=== PATIENT | female | born 1945 | race Caucasian/White ===

== ENCOUNTER 2017-03-22 03:24 | Inpatient (IN) | payer MEDICARE, BC ==
[~2017-03-22] VITALS: Ht 162.6 cm; Wt 50.6 kg
[2017-03-22 03:37] VITALS: BP 156/78; PULSE 86; RESP 18; TEMP 97.4; O2SAT 97
[2017-03-22] MEDS ORDERED: DEXAMETHASONE SOD PHOS 4 MG/ML VIAL IV PUSH ONE (05:15)
[2017-03-22] MEDS ORDERED: HYDROmorphone HCL PF 1 MG/ML VIAL IV PUSH ONE (05:15)
[2017-03-22] MEDS ORDERED: ONDANSETRON HCL 4 MG/2 ML VIAL IV PUSH ONE (05:15)
[2017-03-22 06:00] VITALS: BP 135/67; PULSE 68; RESP 17; O2SAT 98
[2017-03-22 06:33] LABS: BLOOD, URINE NEG (NEG); GLUCOSE,URINE NEG (NEG); KETONE, URINE NEG (NEG); NITRITE,URINE NEG (NEG)
[2017-03-22 06:48] LABS: URINE COLOR YELLOW (YELLW/STRAW)
[2017-03-22 06:49] LABS: MUCUS URINE OCC /lpf (OCC)
[2017-03-22 06:50] LABS: SQUAMOUS EPITHELIAL CELL URINE 0-5 /hpf (0-5)
[2017-03-22 06:51] LABS: BACTERIA, URINE OCC /hpf; WBC, URINE 0-2 /hpf (0-5)
[2017-03-22 06:52] LABS: COMMENT (UR) CULT NOT INDICATED; CULTURE IF INDICATED CULT NOT INDICATED
[2017-03-22 07:28] VITALS: BP 147/68; PULSE 70; RESP 16; O2SAT 98
--- NOTE | 2017-03-22 08:03 | PD ---
HPI Chief Complaint: Pain: Acute or Chronic Time Seen by Provider: 04:42 Travel History International Travel<30 days: No Contact w/Intl Traveler<30days: No Traveled to known affect area: No History of Present Illness HPI 71-year-old female presents to the emergency department by EMS transport from home for complaint of severe low back pain radiating to the right lower extremity. Patient has had low back pain with right lower extremity involvement 10 weeks. Patient has been undergoing PT as an outpatient. Patient had MRI yesterday and was given prescription to start steroid therapy which she has not yet had kidney to do. Patient denies any bladder or bowel dysfunction or saddle anesthesia. Patient has had for 10 weeks numbness to the medial aspect of the right lower extremity as well as severe pain to the lateral aspect of the proximal right lower extremity. Patient has had no injury or fall. Patient rates pain as 10 over 10 in intensity. Patient denies any chest pain shortness of breath pleuritic pain abdominal pain flank pain dysuria frequency urgency or urinary retention or incontinence and no bladder or bowel incontinence. Patient was not able to get out of the [facility] and therefore was transported to the emergency room by EMS. PFSH Past Medical History Narrative Medical Seasonal allergies hysterectomy lumbar disc disease no tobacco use nursing notes reviewed Diminished Hearing: No Genitourinary: Yes (BLADDER LIFT) Medical other: Yes (SEASONAL ALLERGIES) Reproductive: Yes (HYSTERECTOMY) Tetanus Vaccination: < 5 Years Influenza Vaccination: Yes ?: Not Menopausal: Yes : 2 Para: 2 Miscarriage: 0 : 0 Past Surgical History Hysterectomy: Yes Social History Alcohol Use: Yes (SOC) Tobacco Use: No Substance Use: No Allergies-Medications (Allergen,Severity, Reaction): Coded Allergies: Penicillin (Verified Allergy, Severe, Shortness of Breath, 03/22/17) Reported Meds & Prescriptions Reported Meds & Active Scripts Active Review of Systems Except as stated in HPI: all other systems reviewed are Neg General / Constitutional: No: Fever, Chills HENT: No: Congestion Cardiovascular: No: Chest Pain or Discomfort Respiratory: No: Shortness of Breath Gastrointestinal: No: Abdominal Pain Genitourinary: No: Flank Pain Musculoskeletal: Positive: Myalgias, Arthralgias, Pain, No: Limited ROM, Weakness, Cramping, Edema Skin: No Rash Neurologic: Positive: Weakness, Paresthesia (right lower leg), No: Dizziness, Syncope, Focal Abnormalities, Coordination Problem, Incontinence Psychiatric: No: Anxiety Endocrine: No: Heat Intolerance Hematologic/Lymphatic: No: Easy Bruising Physical Exam Narrative GENERAL: Well-developed well-nourished female in no acute distress no respiratory distress SKIN: Warm and dry. HEAD: Normocephalic. EYES: No scleral icterus. No injection or drainage. NECK: Supple, trachea midline. No JVD or lymphadenopathy. CARDIOVASCULAR: Regular rate and rhythm without murmurs, gallops, or rubs. RESPIRATORY: Breath sounds equal bilaterally. No accessory muscle use. GASTROINTESTINAL: Abdomen soft, non-tender, nondistended. MUSCULOSKELETAL: No cyanosis, or edema. BACK: Tender to palpation along the lower lumbar spine and overlying the right SI joint without obvious deformity. No CVA tenderness. Decreased sensation to light touch over the medial right lower leg increased sensitivity to tenderness and pain over the proximal right lower extremity lateral aspect in the lateral cutaneous nerve distribution; DTRs 2+ and equal no clonus bilateral sounds pedis pulses 2+ to palpation. Data Data Last Documented VS Vital Signs Date Time Temp Pulse Resp B/P Pulse Ox O2 Delivery O2 Flow Rate FiO2 03/22/17 07:28 70 16 147/68 98 Room Air 03/22/17 03:37 97.4 Orders ^ Saline Lock (03/22/17 04:42) Dexamethasone Inj (Decadron Inj) (03/22/17 05:15) Ondansetron Inj (Zofran Inj) (03/22/17 05:15) Hydromorphone Pf Inj (Dilaudid Pf Inj) (03/22/17 05:15) Urinalysis - C+S If Indicated (03/22/17 05:20) Admit Order (Ed Use Only) (03/22/17 ) ^ Saline Lock (03/22/17 08:03) Resp Oxygen Carloz C Titrat 1-4 L (03/22/17 ) Notify Dr: Other (03/22/17 08:03) Sodium Chloride 0.9% Flush (Ns Flush) (03/22/17 09:00) Sodium Chloride 0.9% Flush (Ns Flush) (03/22/17 08:15) Labs Laboratory Tests Test 03/22/17 06:05 Urine Color YELLOW Urine Turbidity CLEAR Urine pH 7.0 Urine Specific [place] 1.014 Urine Protein NEG mg/dL Urine Glucose (UA) NEG mg/dL Urine Ketones NEG mg/dL Urine Occult Blood NEG Urine Nitrite NEG Urine Bilirubin NEG Urine Leukocyte Esterase NEG Urine WBC 0-2 /hpf Urine Squamous Epithelial 0-5 /hpf Cells Urine Bacteria OCC /hpf Urine Hyaline Casts 6-9 /lpf Urine Mucus OCC /lpf Microscopic Urinalysis Comment CULT NOT INDICATED MDM Medical Decision Making Medical Screen Exam Complete: Yes Emergency Medical Condition: Yes Medical Record Reviewed: Yes Interpretation(s) Urinalysis: Values in normal range Vital Signs Date Time Temp Pulse Resp B/P Pulse Ox O2 Delivery O2 Flow Rate FiO2 03/22/17 07:28 70 16 147/68 98 Room Air 03/22/17 06:16 17 03/22/17 06:00 68 17 135/67 98 Room Air 03/22/17 03:40 86 18 03/22/17 03:37 97.4 86 18 156/78 97 Differential Diagnosis Lumbar disc disease, radiculopathy, HNP, cauda equina Narrative Course Patient administered IV Decadron 8 mg IV 1 mg Dilaudid IV and Zofran 4 mg IV Patient resting comfortably able to move however unable to weight-bear or lower extremity secondary to severe pain Patient's case discussed with her physician for intractable pain with known lumbar radiculopathy suspect L3-4 L4 5 disc disease with possible impingement MRI as an outpatient pending and not available Physician review of MRI shows that she does have impingement involving the L3 distribution as well as significant disc disease at L4 5 and L5-S1 H will be admitted for observation for pain management and consult with pain management. Physician Communication Physician Communication discussed with Dr Sheehan --obs Diagnosis Primary Impression: Lumbar back pain with radiculopathy affecting right lower extremity Additional Impression: Intractable pain Admitting Information Admitting Physician Requests: Observation Lucia Brenner MD Mar 22, 2017 08:03
[2017-03-22 08:07] VITALS: O2SAT 98
[2017-03-22] MEDS ORDERED: SENNOSIDES 8.6 MG TAB PO PRN (08:15)
[2017-03-22] MEDS ORDERED: LACTULOSE SYRUP 20 GM/30 ML CUP PO PRN (08:15)
[2017-03-22] MEDS ORDERED: NALOXONE HCL 0.4 MG/ML AMP IV PRN (08:15)
[2017-03-22] MEDS ORDERED: BISACODYL 10 MG SUPP RECTAL PRN (08:15)
[2017-03-22] MEDS ORDERED: SODIUM CHLORIDE 0.9% FLUSH 10 ML FLUSH IV FLUSH PRN (08:15)
[2017-03-22] MEDS ORDERED: ONDANSETRON HCL 4 MG/2 ML VIAL IVP PRN (08:15)
[2017-03-22] MEDS ORDERED: SODIUM CHLORIDE 0.9% FLUSH 10 ML FLUSH IVF PRN (08:15)
[2017-03-22] MEDS ORDERED: ACETAMINOPHEN 325 MG TAB PO PRN (08:15)
[2017-03-22] MEDS ORDERED: HYDROmorphone HCL PF 1 MG/ML VIAL IV PUSH PRN (08:15)
[2017-03-22] MEDS ORDERED: MAGNESIUM HYDROXIDE SUSP 30 ML CUP PO PRN (08:15)
[2017-03-22] MEDS ORDERED: ACETAMINOPHEN/HYDROcodone 325 MG/7.5 MG TAB PO PRN (08:15)
--- NOTE | 2017-03-22 08:24 | HHI.PR ---
Addendum to Inpatient Note Addendum Reason: Additional Documentation Additional Information I will be to the hospital to see patient at lunch. I am trying to consult pain management to see her due to intractable pain. will get PT to see her in the interim. I am faxing over MRI of the lumbar spine she did yesterday that showed disc disease with nerve compression. Pt has done PT, chiropractic, meloxicam, steroid IM yesterday and continues to progress with pain over the past few months. now severe. consider neurosurgical consultation if progressive neuro changes but to my understanding she has pain without neuro compromise at this time. Kaykay Sheppard MD Mar 22, 2017 08:24
[2017-03-22 08:47] VITALS: BP 126/63; PULSE 75; RESP 16; O2SAT 96
[2017-03-22] MEDS ORDERED: ADVA250A INH ×2 (08:50→10:03)
[2017-03-22] MEDS ORDERED: SODIUM CHLORIDE 0.9% FLUSH 10 ML FLUSH IV FLUSH SCH ×2 (09:00)
[2017-03-22] MEDS ORDERED: SODIUM CHLOR 0.45% 1000 ML INJ 1,000 ML IV SCH (09:00)
[2017-03-22] MEDS ORDERED: DOCUSATE SODIUM 50 MG/SENNA 8.6 MG TAB PO SCH (09:00)
[2017-03-22 09:55] VITALS: BP 158/79; PULSE 76; RESP 16; TEMP 97.1; O2SAT 100
[2017-03-22] MEDS ORDERED: ESTR0.5T PO (10:02)
[2017-03-22] MEDS ORDERED: FLUT1SPR5 EACH NARE (10:02)
[2017-03-22] MEDS ORDERED: MONT10TA4 PO (10:03)
[2017-03-22] MEDS ORDERED: OXYC1TAB35 PO (12:13)
--- NOTE | 2017-03-22 12:19 | HHI.DS ---
Discharge Summary Admission Date Mar 22, 2017 at 08:05 Discharge Date: Mar 22, 2017 Admitting Diagnosis Lumbar radicuopathy L3-5; intractable pain (1) Lumbar back pain with radiculopathy affecting right lower extremity Diagnosis: Principal Plan: We discussed her course so far, MRI report from yesterday. She has disc protrusion with nerve impingement. I can't get pain management here in [place] and there isn't surgical availability here either. I don't see a need for emergent transfer. She would like to research surgeons before committing. She is now able to move and function. Advised no driving until this is improved. Will discharge home with oral pain meds. She will get the steroid taper she was given yesterday. She will continue wtih PT as tolerated, walk with the walker she has at home. She will call me in the next few days with the surgeon she would like to see and will make the referral. (2) Intractable pain Diagnosis: Principal Plan: see lumbar radiculopathy Consultants none Procedures none Brief History 71 yo WF with severe pain this AM that brought her to the ED. She has been doing PT, chiropractic, massage over a few months but continues to worsen. Hasn' t been able to weight bear to the right leg for the past month. Significant Findings Laboratory Tests Test 03/22/17 06:05 Urine Bacteria OCC /hpf (NONE) Urine Hyaline Casts 6-9 /lpf (RARE) Imaging MRI outpt yesterday PE at Discharge Gen: Thin WF, no distress, moving well in bed Back: no skin lesions, tender over the right sciatic notch, negative SLR bilaterally, full ROM of the hip and knee Neuro: sensation abscence to the medial lower right leg from the knee to the ankle Gait:able to stand independently, walk with walker without full weight bearing to the right leg, worse pain down the lateral right leg with extention at the back, better with flexion. 5/5 strength when in bed. Hospital Course Significant improvement in pain with dilaudid IV to the point that she can now move. Pt Condition on Discharge: Good Discharge Disposition: Discharge Home Discharge Instructions DIET: Follow Instructions for: As Tolerated, No Restrictions Activities you can perform: Weight Bearing as Saeed Activities to Avoid: Driving Other Activity Instructions: no heavy lifting Kaykay Phillips MD Mar 22, 2017 12:19
[2017-03-22] MEDS ORDERED: MONTELUKAST SODIUM 10 MG TAB PO SCH (21:00)
--- NOTE | 2017-03-23 00:28 | MH ---
cc: KONSTANTIN OZUNA MD DATE OF ADMISSION: 03/22/2017 CHIEF COMPLAINT Intractable back pain. HISTORY OF PRESENT ILLNESS Ms. Dupont is a 71-year-old white female who is normally in good health until the past few months. She has had increasing low back pain and decreased ability to function throughout this time. She has been seen in my office by my nurse practitioner and has had general x-rays, physical therapy, chiropractic therapy, massage therapy, and trial of non-narcotic medication for relief of pain without much success. This has continued to worsen especially over the past few weeks. She had an MRI of her spine done yesterday due to the increased pain and decrease in her function. She states overnight she rolled over in bed and had severe pain to her back to the point that she described it as a 14 out of 10 pain. She notes normally bending forward helps to relieve her pain and so she tried to roll to the side of her bed so she could hang her leg off the side but even with that she was unable to function and get relief of pain. Due to the severity of the issue she had her call EVAC to assist him as she did not feel that she would be able to get to the car even for him to take her to the emergency room. EVAC was able to bring her to the emergency room and during evaluation, IV pain medications were given in the ER. She notes she is feeling tremendously better at this point. She is now able to move in bed. Her pain is down to a 2/10 after a 0.5 milligram IV Dilaudid. She denies any major side effects to the medications. She was given an IM steroid injection yesterday in the office and was supposed to have started on oral steroids today, however, had not yet started them. Meloxicam was not effective for pain relief in the recent past. PAST MEDICAL HISTORY: Significant for asthma, menopausal symptomatology, osteoarthritis of the hand. PAST SURGICAL HISTORY: 1. Tonsillectomy 2. Hysterectomy 3. Bladder suspension. 4. Colon polypectomy, benign. 5. Skin cancer removal. 6. Tongue biopsy, November 2015. SOCIAL HISTORY: She is . She is a flight high school professional. Self-employed. She has rare alcohol. She is a never smoker. MEDICATIONS: 1. Advair Diskus 250/50 micrograms, one inhalation daily. 2. Estradiol 1 milligram tablet daily. 3. Aspirin 81 milligrams a day. 4. Fluticasone nasal spray p.r.n. 5. Multivitamin daily. 6. Singulair 10 milligrams daily. 7. Vitamin D. 8. Vitamin D3. ALLERGIES PENICILLIN, causes shortness of breath. FAMILY HISTORY: She has a daughter who is healthy. Dad of old age. He did have diabetes, glaucoma and testicular cancer. She had maternal aunt with cardiovascular disease. Mom age 73 of heart disease, bypass at age 69. She had an DC at age 62. She had COPD but no history of tobacco use. She had a sister with diabetes had a pancreas and kidney transplant. She in 2007 in her sleep. She has another sister with hypertension. She has a son with type 1 diabetes. IMMUNIZATIONS: Pneumovax 23, given in 1999. Pneumovax 23 repeat in 2008. Prevnar given 03/04/2016. Flu vaccine given July 24, 2016. Tetanus in 2007. Colonoscopy not due until 2020. REVIEW OF SYSTEMS: She denies any chest discomfort, or shortness of breath at this time. No recent upper respiratory infection. No fevers, sweats or chills. No other skin lesions noted. She has had no rashes. She has had no abdominal pain. No hematochezia, melena, no dysuria, hematuria, no constipation or other bowel changes. She has had no lower extremity edema, no changes to the skin of the lower extremities. She does note inability to put weight on her right leg fully, numbness to the right lower medial leg from the knee to the ankle. It has become more prominent over the past couple of months. She notes with her altered state her left hip has been bothersome. She feels somewhat crooked in her stance. Today she has had an overall decrease in her level of function due to the weakness and the pain in her leg. OBJECTIVE: VITAL SIGNS: Blood pressure was 135/67, O2 sat 98% on room air, pulse in the 68 range, she has been afebrile throughout her admission. Her initial admit, actually blood pressure was 157/78. GENERAL: In general, she is a well-developed thin white female, appearing younger than stated age. HEENT: Benign. CARDIOVASCULAR: Regular rate and rhythm. LUNGS: Clear bilaterally. ABDOMEN: Soft and non-tender. She is lying in bed appearing comfortable. EXTREMITIES: She was able to rotate in bed and move her legs without difficulty on exam. Laying in bed she had 4/5 strength on the right, 5/5 strength on the left. She had good dorsiflexion and plantar flexion of the foot. She had a subjective numbness between the knee and ankle medially on the right lower leg. The remainder of her sensation was within normal limits. There was no tenderness to palpation throughout the leg and negative straight leg raise on exam. She is able to get to the side of the bed and stand without assistance but she would put her weight predominantly on her left leg. She would only temporarily put weight on her right leg noting increased pain. She had increased pain with extension at the waist. Decreased pain with flexion. She was able to walk with the walker but felt best if she put minimal weight on her right leg. She did have a little hip asymmetry but no lesions to the back. She had slight tenderness over the right sciatic notch. LABORATORY DATA: Urinalysis was negative. IMAGING STUDIES: Her MRI of her lumbar spine done yesterday did show an L3-L4 disc protrusion with some cord compression. ASSESSMENT AND PLAN: 1. Low back pain with radiculopathy affecting the right lower leg. She is feeling significantly better at this time compared to admission. We discussed her MRI reports and her recent findings. Seeing how she has done all the usual outpatient therapies with physical therapy, primary care pediatrician, massage therapy, NSAID therapy and appropriate behavior response, given her disc disease, I think it would be reasonable for her to see neurosurgery to consider surgical repair of the disc. We also discussed options for pain management and steroid injections if needed, however, that would not resolve the issue of the disc dislocation and impingement on the nerve. She is significantly disabled at this time. She is in the [facility] and I am unable to get her pain management or surgical treatment where she is. She felt that she would prefer to be discharged home and try the steroids orally, continue with physical therapy, use of the walker at this time. She would like to research neurosurgical and orthopedic options for surgery and give me a call with her decision in the next day or so. I have advised her not to drive at this time as this is her right leg and she is uncomfortable with putting full pressure on that right leg. She agrees. She will need to use the walker at home for the time being until we can improve her function. Advised to avoid falls and any further injury to the back. She is well aware. She will be sent home today with a script for oxycodone APAP 7.5/325 milligrams. The risks, benefits and side effects discussed. She may start with a half tablet q.i.d. if needed. She will take the Medrol Dosepak that she was given yesterday in the office and see if that helps relieve any of the pain at this time. She will give me a call in the next few days regarding surgical consultation that she is willing to accept. 2. Asthma. She is to continue with her Advair Diskus control and the Singulair. She has been under good control. 3. Menopausal status. She is on Estradiol daily. She did not do well off of the medications in the past due to menopausal symptoms. If she does undergo surgery, I will have her stop that for the time of the surgery and she may restart once her activities resume normal postsurgically. The patient was seen by physical therapy while in the hospital. MD MARRY Gonzalez/ALEXIS /10:56 PM /11:32 PM
== END 2017-03-22 13:43 | disposition home or self-care (01) | DRG 552 ==
LOC: PHED 03:24 → PHEDA 08:05 → OBSVTOIN 08:07 → PH3A 09:25
PROVIDERS: ADMIT Family Medicine; ATTEND Family Medicine
DX: M54.16 Radiculopathy, lumbar region (principal); J45.909 Unspecified asthma, uncomplicated; Z85.828 Personal history of other malignant neoplasm of skin
CPT/HCPCS: 81001; 96374; 96375; J1100; J1170; J2405

== ENCOUNTER 2017-05-12 19:03 | Inpatient (IN) | payer MEDICARE, BC ==
[~2017-05-12] VITALS: Ht 162.6 cm; Wt 48.5 kg
[~2017-05-12 19:03] MED LIST: ADVA250A INH; ESTR0.5T PO; FLUT1SPR5 EACH NARE; MONT10TA4 PO; OXYC1TAB35 PO
[2017-05-12 19:05] VITALS: BP 171/114; PULSE 88; RESP 16; TEMP 98.6; O2SAT 98
[2017-05-12 19:20] VITALS: BP 146/71; RESP 16; O2SAT 99
[2017-05-12] MEDS ORDERED: SODIUM CHLORIDE 0.9% FLUSH 10 ML FLUSH IV FLUSH PRN ×2 (19:30→22:15)
[2017-05-12] MEDS ORDERED: SODIUM CHLORID 0.9% 500 ML INJ 500 ML IV ONE (19:30)
[2017-05-12] MEDS ORDERED: ONDANSETRON HCL 4 MG/2 ML VIAL IVP ONE (19:30)
[2017-05-12] MEDS ORDERED: KETOROLAC TROMETHAMINE 30 MG/ML (IVP) VIAL IVP ONE (19:30)
[2017-05-12 19:41] LABS: AUTOMATED NEUTROPHIL # 6.8 TH/MM3 (1.8-7.7); BASOPHIL # 0.4 TH/MM3 (0-0.2); BASOPHIL % 4.4 % (0.0-2.0); EOSINOPHIL # 0.1 TH/MM3 (0-0.4); EOSINOPHIL % 0.7 % (0.0-4.0); HEMATOCRIT 38.5 % (35.0-46.0); HEMO FLAGS DIFF FINAL; LYMPHOCYTE # 1.5 TH/MM3 (1.0-4.8); MEAN CELL VOLUME 90.6 FL (80.0-100.0); MEAN CORPUSCULAR HEMOGLOBIN 31.1 PG (27.0-34.0); MEAN CORPUSCULAR HGB CONC 34.3 % (32.0-36.0); MONO % 5.7 % (0.0-8.0); NEUT % 73.2 % (16.0-70.0); PLATELET COUNT 220 TH/MM3 (150-450); RED BLOOD COUNT 4.25 MIL/MM3 (4.00-5.30); RED CELL DISTRIBUTION WIDTH 12.3 % (11.6-17.2); WHITE BLOOD COUNT 9.3 TH/MM3 (4.0-11.0)
--- NOTE | 2017-05-12 19:41 | PD ---
HPI Chief Complaint: GI Complaint Time Seen by Provider: 19:17 Travel History International Travel<30 days: No Contact w/Intl Traveler<30days: No Traveled to known affect area: No History of Present Illness HPI Patient is a 71-year-old female presents with 3-4 day history of "torso" pain. Patient states torso but points to her epigastric area. She states she's been having some nausea without vomiting as well as diarrhea and cramping. She denies any shortness of breath. She states that she has been recovering from some back pain and a subacute fracture but her pain in her back is actually gotten much better even though she hasn't gotten her referral to pain management. She denies any fevers states that she's not had pain like this in the past. Her surgeries include a hysterectomy and a bladder suspension. Denies any dysuria PFSH Past Medical History Blood Disorders: No Diminished Hearing: No Endocrine: No Gastrointestinal Disorders: No Genitourinary: No Immune Disorder: No Reproductive: No Respiratory: Yes (ALLERGIES ) ?: Not Menopausal: Yes : 2 Para: 2 Miscarriage: 0 : 0 Past Surgical History Hysterectomy: Yes Other Surgery: Yes Social History Alcohol Use: Yes (SOC) Tobacco Use: No Substance Use: No Allergies-Medications (Allergen,Severity, Reaction): Coded Allergies: Penicillin (Verified Allergy, Severe, Shortness of Breath, 05/12/17) Reported Meds & Prescriptions Reported Meds & Active Scripts Active Oxycodone-Acetaminophen 7.5-325 mg Tab 1 Tab PO Q4H PRN Reported Montelukast (Montelukast Sodium) 10 Mg Tab 10 Mg PO HS Advair Diskus Inh (Fluticasone-Salmeterol Inh) 250-50 Mcg/Blist Aer 1 Puff INH HS Rinse mouth after use. Flonase Nasal Vickery (Fluticasone Nasal Vickery) 50 Mcg/Act Vickery 50 Mcg EACH NARE HS Estradiol 0.5 Mg Tab 0.5 Mg PO Review of Systems Except as stated in HPI: all other systems reviewed are Neg Physical Exam Narrative GENERAL: Well-developed well-nourished, thin build in no obvious distress. SKIN: Focused skin assessment warm/dry. HEAD: Atraumatic. Normocephalic. EYES: Pupils equal and round. No scleral icterus. No injection or drainage. ENT: No nasal bleeding or discharge. Mucous membranes pink and moist. NECK: Trachea midline. No JVD. CARDIOVASCULAR: Regular rate and rhythm. No murmur appreciated. RESPIRATORY: No accessory muscle use. Clear to auscultation. Breath sounds equal bilaterally. GASTROINTESTINAL: Abdomen soft, non-tender, nondistended. Hepatic and splenic margins not palpable. No rebound no percussive tenderness. MUSCULOSKELETAL: No obvious deformities. No clubbing. No cyanosis. No edema. NEUROLOGICAL: Awake and alert. No obvious cranial nerve deficits. Motor grossly within normal limits. Normal speech. PSYCHIATRIC: Appropriate mood and affect; insight and judgment normal. Data Data Last Documented VS Vital Signs Date Time Temp Pulse Resp B/P Pulse Ox O2 Delivery O2 Flow Rate FiO2 05/12/17 20:59 82 16 151/67 99 Room Air 05/12/17 19:05 98.6 Orders Complete Blood Count With Diff (05/12/17 19:26) Comprehensive Metabolic Panel (05/12/17 19:26) Lipase (05/12/17 19:26) Prothrombin Time / Inr (Pt) (05/12/17 19:26) Act Partial Throm Time (Ptt) (05/12/17 19:26) Urinalysis - C+S If Indicated (05/12/17 19:26) Iv Access Insert/Monitor (05/12/17 19:26) Ecg Monitoring (05/12/17 19:26) Oximetry (05/12/17 19:26) Ondansetron Inj (Zofran Inj) (05/12/17 19:30) Sodium Chloride 0.9% Flush (Ns Flush) (05/12/17 19:30) Electrocardiogram (05/12/17 19:26) Ketorolac Inj (Toradol Inj) (05/12/17 19:30) Sodium Chlorid 0.9% 500 Ml Inj (Ns 500 M (05/12/17 19:30) Troponin I (05/12/17 19:26) Ct Abd/Pel W Iv Contrast(Rout) (05/12/17 ) Iohexol 350 Inj (Omnipaque 350 Inj) (05/12/17 20:40) Consult Gastroenterology (05/12/17 ) Consult General Surgery (05/12/17 ) Admit Order (Ed Use Only) (05/12/17 ) Mri Mrcp W/O Contrast (05/12/17 ) Labs Laboratory Tests Test 05/12/17 05/12/17 18:30 20:55 White Blood Count 9.3 TH/MM3 Red Blood Count 4.25 MIL/MM3 Hemoglobin 13.2 GM/DL Hematocrit 38.5 % Mean Corpuscular Volume 90.6 FL Mean Corpuscular Hemoglobin 31.1 PG Mean Corpuscular Hemoglobin 34.3 % Concent Red Cell Distribution Width 12.3 % Platelet Count 220 TH/MM3 Mean Platelet Volume 8.8 FL Neutrophils (%) (Auto) 73.2 % Lymphocytes (%) (Auto) 16.0 % Monocytes (%) (Auto) 5.7 % Eosinophils (%) (Auto) 0.7 % Basophils (%) (Auto) 4.4 % Neutrophils # (Auto) 6.8 TH/MM3 Lymphocytes # (Auto) 1.5 TH/MM3 Monocytes # (Auto) 0.5 TH/MM3 Eosinophils # (Auto) 0.1 TH/MM3 Basophils # (Auto) 0.4 TH/MM3 CBC Comment DIFF FINAL Differential Comment Prothrombin Time 10.6 SEC Prothromb Time International 1.0 RATIO Ratio Activated Partial 24.5 SEC Thromboplast Time Sodium Level 136 MEQ/L Potassium Level 3.6 MEQ/L Chloride Level 100 MEQ/L Carbon Dioxide Level 28.6 MEQ/L Anion Gap 7 MEQ/L Blood Urea Nitrogen 12 MG/DL Creatinine 0.69 MG/DL Estimat Glomerular Filtration 83 ML/MIN Rate Random Glucose 113 MG/DL Calcium Level 10.2 MG/DL Total Bilirubin 2.0 MG/DL Aspartate Amino Transf 365 U/L (AST/SGOT) Alanine Aminotransferase 209 U/L (ALT/SGPT) Alkaline Phosphatase 319 U/L Troponin I LESS THAN 0.02 NG/ML Total Protein 7.8 GM/DL Albumin 3.6 GM/DL Lipase 70804 U/L Urine Color YELLOW Urine Turbidity CLEAR Urine pH 6.0 Urine Specific [place] 1.025 Urine Protein NEG mg/dL Urine Glucose (UA) NEG mg/dL Urine Ketones 15 mg/dL Urine Occult Blood NEG Urine Nitrite NEG Urine Bilirubin NEG Urine Leukocyte Esterase TRACE Urine RBC 0-3 /hpf Urine WBC 3-5 /hpf Urine Squamous Epithelial 0-5 /hpf Cells Urine Amorphous Sediment MOD Urine Bacteria OCC /hpf Microscopic Urinalysis Comment CULT NOT INDICATED MDM Medical Decision Making Medical Screen Exam Complete: Yes Emergency Medical Condition: Yes Differential Diagnosis Pancreatitis, cholecystitis, colitis, gastritis, Narrative Course Patient roomed in the emergency department, her lab workup was significant for elevated lipase in the 10,000 range, AST and ALT were elevated as well as alkaline phosphatase and bilirubin minimally elevated to 2.0. With these lab values I have recommended the patient had a CAT scan of her abdomen which showed pericholecystic fluid and dilation of the entire biliary system consistent with a gallstone pancreatitis Last 24 hours Impressions Abdomen/Pelvis CT 05/12/17 0000 Signed Impressions: Service Date/Time: May 20:26 - CONCLUSION: 1. Abnormal appearance to the biliary system with dilation of both the intra-and extrahepatic biliary system, a distended gallbladder, and free fluid in Warner's pouch. No calcified stones in the gallbladder or biliary ducts. The findings suggest obstruction at the level of the ampulla. 2. Symmetric appearing soft tissue masses in the pelvis which appear to connect with the vagina (history of hysterectomy). This finding is of uncertain significance. Recommend correlation with pelvic examination. Sami Bermudez MD The findings were discussed with Dr. Dean and Dr. Gustavo Douglas, current recommendations are for MRCP now transferred [facility] for likely ERCP in the morning, nothing by mouth and IV hydration. The patient was given Toradol Zofran in the emergency department is feeling better. All things considered the patient does look fairly comfortable. Patient discussed with Dr. Oropeza for admission and she is agreeable. Diagnosis Primary Impression: Gallstone pancreatitis Admitting Information Admitting Physician Requests: Admit (To [facility]. Stable for transportation.) Condition: Stable Levon Santiago MD May 12, 2017 19:41
[2017-05-12 19:52] LABS: CHLORIDE 100 MEQ/L (98-107); POTASSIUM 3.6 MEQ/L (3.5-5.1); SODIUM (NA) 136 MEQ/L (136-145)
[2017-05-12 19:56] LABS: ANION GAP 7 MEQ/L (5-15); BICARBONATE 28.6 MEQ/L (21.0-32.0); BLOOD UREA NITROGEN 12 MG/DL (7-18)
[2017-05-12 19:57] LABS: APTT (PATIENT) 24.5 SEC (24.3-30.1); PROTHROMBIN TIME - PATIENT 10.6 SEC (9.8-11.6)
[2017-05-12 19:58] LABS: ALT (GPT) 209 U/L (10-53)
[2017-05-12 19:59] LABS: AST (GOT) 365 U/L (15-37); GLOMERULAR FILTRATION RATE 83 ML/MIN (>89)
[2017-05-12 20:01] LABS: ALKALINE PHOSPHATASE 319 U/L (45-117)
[2017-05-12] MEDS ORDERED: IOHEXOL 350 MG/ML 10 ML VIAL (for RAD DIAG) IV ONE (20:40)
[2017-05-12 20:59] VITALS: BP 151/67; PULSE 82; RESP 16; O2SAT 99
[2017-05-12 21:04] LABS: BLOOD, URINE NEG (NEG); GLUCOSE,URINE NEG (NEG); KETONE, URINE 15 mg/dL (NEG); NITRITE,URINE NEG (NEG)
[2017-05-12 21:11] LABS: RBC, URINE 0-3 /hpf (0-3); SQUAMOUS EPITHELIAL CELL URINE 0-5 /hpf (0-5); URINE COLOR YELLOW (YELLW/STRAW)
[2017-05-12 21:12] LABS: BACTERIA, URINE OCC /hpf; COMMENT (UR) CULT NOT INDICATED; CULTURE IF INDICATED CULT NOT INDICATED
--- NOTE | 2017-05-12 21:29 | RADRPT ---
EXAM DATE/TIME: 05/12/2017 20:26 [facility] COMPARISON: No previous studies available for comparison. INDICATIONS : Abdominal pain, nausea, diarrhea. IV CONTRAST: 94 cc Omnipaque 350 (iohexol) IV ORAL CONTRAST: No oral contrast ingested. RADIATION DOSE: 3.68 CTDIvol (mGy) MEDICAL HISTORY : None SURGICAL HISTORY : Hysterectomy. ENCOUNTER: Initial ACUITY: 3 days PAIN SCALE: 9/10 LOCATION: Right upper quadrant TECHNIQUE: Volumetric scanning of the abdomen and pelvis was performed. Using automated exposure control and ad justment of the mA and/or kV according to patient size, radiation dose was kept as low as reasonably achievable to obtain optimal diagnostic quality images. DICOM format image data is available electro nically for review and comparison. FINDINGS: LOWER LUNGS: The visualized lower lungs are clear. LIVER: Abnormal. There is dilation of the intra-and extrahepatic biliary system with the common bile duct m easuring up to 1.8 cm at the jacob and 1.1 cm in the head of the pancreas. The entire common bile du ct is dilated down to the level of the ampulla. The gallbladder is distended. No calcified stones s een in the gallbladder or biliary system. No solid lesions seen in the hepatic parenchyma. There is a moderate amount of free fluid in Morison spelled which does not track into the paracolic gutter. SPLEEN: Normal size without lesion. PANCREAS: Normal configuration. No dilation of the pancreatic duct. KIDNEYS: Normal in size and shape. There is no mass, stone or hydronephrosis. ADRENAL GLANDS: Within normal limits. VASCULAR: There is no aortic aneurysm. BOWEL/MESENTERY: No dilated loops of small or large bowel. ABDOMINAL WALL: Within normal limits. RETROPERITONEUM: There is no lymphadenopathy. BLADDER: No wall thickening or mass. REPRODUCTIVE: Hysterectomy. There are bilateral pelvic masses which measure 3.0 cm on the right and 2.5 cm and the left, containing a few punctate calcifications with in. These appear to coalesce in the midline in the region of the vaginal fornix. INGUINAL: There is no lymphadenopathy or hernia. MUSCULOSKELETAL: Within normal limits for patient age. CONCLUSION: 1. Abnormal appearance to the biliary system with dilation of both the intra-and extrahepatic biliary system, a distended gallbladder, and free fluid in Warner's pouch. No calcified stones in the gal lbladder or biliary ducts. The findings suggest obstruction at the level of the ampulla. 2. Symmetric appearing soft tissue masses in the pelvis which appear to connect with the vagina (hist ory of hysterectomy). This finding is of uncertain significance. Recommend correlation with pelvic examination. Sami Bermudez MD on May 12, 2017 at 21:19 Board Certified Radiologist. This report was verified electronically.
[2017-05-12] MEDS ORDERED: ACETAMINOPHEN/HYDROcodone 325 MG/5 MG TAB PO PRN (22:15)
[2017-05-12] MEDS ORDERED: LACTULOSE SYRUP 20 GM/30 ML CUP PO PRN (22:15)
[2017-05-12] MEDS ORDERED: ONDANSETRON HCL 4 MG/2 ML VIAL IVP PRN (22:15)
[2017-05-12] MEDS ORDERED: ACETAMINOPHEN 325 MG TAB PO PRN (22:15)
[2017-05-12] MEDS ORDERED: HYDROmorphone HCL PF 1 MG/ML VIAL IV PRN (22:15)
[2017-05-12] MEDS ORDERED: MAGNESIUM HYDROXIDE SUSP 30 ML CUP PO PRN (22:15)
[2017-05-12] MEDS ORDERED: SENNOSIDES 8.6 MG TAB PO PRN (22:15)
[2017-05-12] MEDS ORDERED: BISACODYL 10 MG SUPP RECTAL PRN (22:15)
[2017-05-12 23:26] VITALS: BP 140/77; PULSE 85; RESP 16; O2SAT 99
--- NOTE | 2017-05-12 23:44 | RADRPT ---
EXAM DATE/TIME: 05/12/2017 23:09 [facility] COMPARISON: CT ABDOMEN & PELVIS W CONTRAST, May 12, 2017, 20:26. INDICATIONS : Pain. MEDICAL HISTORY : None. SURGICAL HISTORY : Hysterectomy. Bladder surgery. Sinus surgery. ENCOUNTER: Initial ACUITY: 1 day PAIN SCORE: 2/10 LOCATION: Right upper quadrant TECHNIQUE: Multiplanar, multisequence magnetic resonance imaging of the abdomen was performed. High-resolution 3D dataset was utilized to reconstruct maximum-intensity projection (MIP) images. FINDINGS: The liver and spleen are normal in size and no focal defects are identified. The gallbladder is diste nded with pericholecystic fluid with dilatation of the common duct to 11 mm but no stone is identifie d. There is mild dilatation of intrahepatic ducts as well. The pancreas demonstrates no evidence of m ass and there is no dilatation of the pancreatic duct. The adrenal glands and kidneys appear normal b ilaterally. No hydronephrosis or mass lesions are identified. No abnormally enlarged lymph nodes are identified. CONCLUSION: 1. Gallbladder distention and ductal dilatation without evidence of stone. 2. Pericholecystic fluid is present characteristic of cholecystitis Han Troncoso MD on May 12, 2017 at 23:38 Board Certified Radiologist. This report was verified electronically.
[2017-05-13] MEDS: SODIUM CHLOR 0.9% 1000 ML INJ 1,000 ML IV SCH ×4 (00:22→20:28)
[2017-05-13] MEDS: PANTOPRAZOLE SODIUM 40 MG VIAL IV PUSH SCH ×2 (00:22→11:00)
[2017-05-13 03:17] VITALS: BP 136/63; PULSE 71; RESP 17; TEMP 97.7; O2SAT 97
[2017-05-13 07:46] VITALS: BP 105/53; PULSE 71; RESP 18; TEMP 97.2; O2SAT 96
[2017-05-13] MEDS: DOCUSATE SODIUM 50 MG/SENNA 8.6 MG TAB PO SCH ×2 (11:00→20:28)
[2017-05-13] MEDS: SODIUM CHLORIDE 0.9% FLUSH 10 ML FLUSH IV FLUSH SCH ×2 (11:04→20:28)
--- NOTE | 2017-05-13 11:13 | EKG ---
Date Performed: 05/12/2017 Time Performed: 19:37:00 PTAGE: 71 years EKG: Sinus rhythm NORMAL ECG Since PREVIOUS TRACING , no significant change noted PREVIOUS TRACIN08/21/2002 08.09 DOCTOR: Han Perea Interpretating Date/Time 05/13/2017 11:12:19
[2017-05-13 11:57] VITALS: BP 127/62; PULSE 79; RESP 18; TEMP 97.8; O2SAT 96
--- NOTE | 2017-05-13 13:00 | PD.CONS ---
HPI Service General Surgery Consult Requested By Dr. Santiago Reason for Consult gallstone pancreatitis Primary Care Physician Kaykay Phillips MD History of Present Illness 71 yo F developed presents with abdominal pain. She developed epigastric pain radiating down to the pubis and to the back for a few days. This is associated with nausea but no vomiting. Labs revealed elevated LFTs and elevated lipase. CT a/p showed dilation of biliary tree and gallbladder. MRCP was performed showing same, and also pericholecystic fluid, but no stones in gallbladder or common duct. PSH includes hysterectomy. Review of Systems Constitutional: DENIES: Fever, Chills Eyes: DENIES: Eye inflammation, Eye pain Ears, nose, mouth, throat: DENIES: Nasal discharge, Throat pain Respiratory: DENIES: Cough, Shortness of breath Cardiovascular: DENIES: Chest pain, Palpitations Gastrointestinal: COMPLAINS OF: Abdominal pain, Nausea Musculoskeletal: COMPLAINS OF: Back pain Integumentary: DENIES: Pruritus, Rash Neurologic: DENIES: Paresthesias, Seizures Past Family Social History Past Medical History Asthma Past Surgical History Hysterectomy Bladder lift Reported Medications Reported Meds & Active Scripts Active Oxycodone-Acetaminophen 7.5-325 mg Tab 1 Tab PO Q4H PRN Reported Montelukast (Montelukast Sodium) 10 Mg Tab 10 Mg PO HS Advair Diskus Inh (Fluticasone-Salmeterol Inh) 250-50 Mcg/Blist Aer 1 Puff INH HS Rinse mouth after use. Flonase Nasal Allgood (Fluticasone Nasal Allgood) 50 Mcg/Act Allgood 50 Mcg EACH NARE HS Estradiol 0.5 Mg Tab 0.5 Mg PO Allergies: Coded Allergies: Penicillin (Verified Allergy, Severe, Shortness of Breath, 05/12/17) Active Ordered Medications Current Medications Medications (Trade) Dose Ordered Sig/Genaro Route Start Time Stop Time Status Last Admin Pantoprazole Sodium 40 mg 40 mg Q12H IV PUSH 05/12/17 23:00 05/13/17 11:00 (NS 1000 ml Inj) 1,000 ml @ 100 mls/hr Q10H IV 05/12/17 22:07 05/13/17 11:02 (NS Flush) 2 ml UNSCH PRN IV FLUSH 05/12/17 22:15 (NS Flush) 2 ml BID IV FLUSH 05/13/17 09:00 05/13/17 11:04 (Zofran Inj) 4 mg Q6H PRN IVP 05/12/17 22:15 (Tylenol) 650 mg Q6H PRN PO 05/12/17 22:15 (Garrett 5-325 Mg) 1 tab Q4H PRN PO 05/12/17 22:15 (Dilaudid Pf Inj) 0.5 mg Q3H PRN IV 05/12/17 22:15 (Bridgette-Colace) 1 tab BID PO 05/13/17 09:00 05/13/17 11:00 (Milk Of Magnesia Liq) 30 ml Q12H PRN PO 05/12/17 22:15 (Senokot) 17.2 mg Q12H PRN PO 05/12/17 22:15 (Dulcolax Supp) 10 mg DAILY PRN RECTAL 05/12/17 22:15 (Lactulose Liq) 30 ml DAILY PRN PO 05/12/17 22:15 Family History Noncontributory Social History Rare ETOH. No tobacco use. Physical Exam Vital Signs Vital Signs Date Time Temp Pulse Resp B/P Pulse Ox O2 Delivery O2 Flow Rate FiO2 05/13/17 11:57 97.8 79 18 127/62 96 05/13/17 07:46 97.2 71 18 105/53 96 05/13/17 03:17 97.7 71 17 136/63 97 05/12/17 23:26 85 16 140/77 99 Room Air 05/12/17 20:59 82 16 151/67 99 Room Air 05/12/17 19:20 16 146/71 99 Room Air 05/12/17 19:05 98.6 88 16 171/114 98 Physical Exam GENERAL: Awake and alert. No acute distress. Cooperative. HEAD: Normocephalic. Atraumatic. EYES: Pupils equal round and reactive to light bilaterally. No scleral icterus. CHEST: Lungs clear to auscultation bilaterally with no wheezing or rhonchi. No respiratory distress. CARDIOVASCULAR: Regular rate and rhythm. ABDOMEN: Mild mid abdominal tenderness. Nondistended. Soft. Positive Dumont sign. EXTREMITIES: No cyanosis or edema. SKIN: Warm, dry, nonjaundiced. Laboratory Laboratory Tests Test 05/12/17 05/12/17 18:30 20:55 White Blood Count 9.3 Red Blood Count 4.25 Hemoglobin 13.2 Hematocrit 38.5 Mean Corpuscular Volume 90.6 Mean Corpuscular Hemoglobin 31.1 Mean Corpuscular Hemoglobin 34.3 Concent Red Cell Distribution Width 12.3 Platelet Count 220 Mean Platelet Volume 8.8 Neutrophils (%) (Auto) 73.2 Lymphocytes (%) (Auto) 16.0 Monocytes (%) (Auto) 5.7 Eosinophils (%) (Auto) 0.7 Basophils (%) (Auto) 4.4 Neutrophils # (Auto) 6.8 Lymphocytes # (Auto) 1.5 Monocytes # (Auto) 0.5 Eosinophils # (Auto) 0.1 Basophils # (Auto) 0.4 CBC Comment DIFF FINAL Differential Comment Prothrombin Time 10.6 Prothromb Time International 1.0 Ratio Activated Partial 24.5 Thromboplast Time Sodium Level 136 Potassium Level 3.6 Chloride Level 100 Carbon Dioxide Level 28.6 Anion Gap 7 Blood Urea Nitrogen 12 Creatinine 0.69 Estimat Glomerular Filtration 83 Rate Random Glucose 113 Calcium Level 10.2 Total Bilirubin 2.0 Aspartate Amino Transf 365 (AST/SGOT) Alanine Aminotransferase 209 (ALT/SGPT) Alkaline Phosphatase 319 Troponin I LESS THAN 0.02 Total Protein 7.8 Albumin 3.6 Lipase 68119 Urine Color YELLOW Urine Turbidity CLEAR Urine pH 6.0 Urine Specific Gab[place] 1.025 Urine Protein NEG Urine Glucose (UA) NEG Urine Ketones 15 Urine Occult Blood NEG Urine Nitrite NEG Urine Bilirubin NEG Urine Leukocyte Esterase TRACE Urine RBC 0-3 Urine WBC 3-5 Urine Squamous Epithelial 0-5 Cells Urine Amorphous Sediment MOD Urine Bacteria OCC Microscopic Urinalysis Comment CULT NOT INDICATED Result Diagram: 05/12/17 1830 05/12/17 1830 Imaging Last Impressions Cholangiopancreatography MRI 05/12/17 0000 Signed Impressions: Service Date/Time: May 23:09 - CONCLUSION: 1. Gallbladder distention and ductal dilatation without evidence of stone. 2. Pericholecystic fluid is present characteristic of cholecystitis Han Troncoso MD Abdomen/Pelvis CT 05/12/17 0000 Signed Impressions: Service Date/Time: May 20:26 - CONCLUSION: 1. Abnormal appearance to the biliary system with dilation of both the intra-and extrahepatic biliary system, a distended gallbladder, and free fluid in Warner's pouch. No calcified stones in the gallbladder or biliary ducts. The findings suggest obstruction at the level of the ampulla. 2. Symmetric appearing soft tissue masses in the pelvis which appear to connect with the vagina (history of hysterectomy). This finding is of uncertain significance. Recommend correlation with pelvic examination. Sami Bermudez MD Assessment and Plan Assessment and Plan 71-year-old female with elevated LFTs and pancreatitis. No gallstones were identified on MRCP. However, I think it is likely that she has gallstone pancreatitis from a passed stone or sludge. She needs follow-up labs. I would offer cholecystectomy based on history of gallstone pancreatitis when she is clinically improved. I'll be happy to have her follow-up with me next week and I discussed this in detail with her. She may end up declining cholecystectomy as her had similar episodes and did not have a cholecystectomy and did well. From my standpoint, okay to advance diet as she continues to clinically improve and discharge home when appropriate. MisaelEmeka MD May 13, 2017 13:00
--- NOTE | 2017-05-13 13:07 | HHI.HP ---
cc: Kaykay Phillips MD HPI Service [facility] Primary Care Physician Kaykay Phillips MD Admission Diagnosis Gallstone Pancreatitis Diagnoses: Chief Complaint: Abdominal pain Travel History International Travel<30 Days: No Contact w/Intl Traveler <30 Da: No Traveled to Known Affected Are: No History of Present Illness Written by Lulu Casey, acting as scribe for Dr. Willson on 05/13/17 at 12:59. This is a 68-year-old female patient with past medical history which includes arthritis, seasonal allergies and recent herniated disc. Patient presented to the hospital with complaints of 3-4 days of abdominal pain. Patient reports the pain is located between the rib cage to her pelvis with radiation to the back. Patient describes the pain as a 9 out of 10 at its worse and is currently ," -1," out of 10. The pain was associated nausea but no vomiting. Patient with nausea was so bad that she has been unable to eat. Patient also reports 2 days of light colored diarrhea associated with abdominal cramping. Diarrhea has since resolved. Patient denies black tarry stools or bright red blood present. Patient offers no other complaints at this time. Patient denies shortness of breath, chest pain, fevers, chills or dysuria. Review of Systems Except as stated in HPI: all other systems reviewed are Neg Past Family Social History Past Medical History Arthritis, seasonal allergies and recent herniated disc Past Surgical History Tonsillectomy as a child, hysterectomy and bladder expansion 1994, colon polypectomy which was benign, skin cancer removal, Tongue bx October 2015 also benign Reported Medications Oxycodone-Acetaminophen 7.5-325 mg Tab 1 Tab PO Q4H PRN Montelukast (Montelukast Sodium) 10 Mg Tab 10 Mg PO HS Advair Diskus Inh (Fluticasone-Salmeterol Inh) 250-50 Mcg/Blist Aer 1 Puff INH HS Rinse mouth after use. Flonase Nasal [place]art (Fluticasone Nasal [place]art) 50 Mcg/Act [place]art 50 Mcg EACH NARE HS Estradiol 0.5 Mg Tab 0.5 Mg PO Allergies: Coded Allergies: Penicillin (Verified Allergy, Severe, Shortness of Breath, 05/12/17) Active Ordered Medications Current Medications Medications (Trade) Dose Ordered Sig/Genaro Route Start Time Stop Time Status Last Admin Pantoprazole Sodium 40 mg 40 mg Q12H IV PUSH 05/12/17 23:00 05/13/17 11:00 (NS 1000 ml Inj) 1,000 ml @ 100 mls/hr Q10H IV 05/12/17 22:07 05/13/17 11:02 (NS Flush) 2 ml UNSCH PRN IV FLUSH 05/12/17 22:15 (NS Flush) 2 ml BID IV FLUSH 05/13/17 09:00 05/13/17 11:04 (Zofran Inj) 4 mg Q6H PRN IVP 05/12/17 22:15 (Tylenol) 650 mg Q6H PRN PO 05/12/17 22:15 ([place] 5-325 Mg) 1 tab Q4H PRN PO 05/12/17 22:15 (Dilaudid Pf Inj) 0.5 mg Q3H PRN IV 05/12/17 22:15 (Bridgette-Colace) 1 tab BID PO 05/13/17 09:00 05/13/17 11:00 (Milk Of Magnesia Liq) 30 ml Q12H PRN PO 05/12/17 22:15 (Senokot) 17.2 mg Q12H PRN PO 05/12/17 22:15 (Dulcolax Supp) 10 mg DAILY PRN RECTAL 05/12/17 22:15 (Lactulose Liq) 30 ml DAILY PRN PO 05/12/17 22:15 Family History Father of old age, diabetes, glaucoma and testicular cancer Mother at 73 of heart disease [place] at 62 and CABG at 69 and COPD son has DM sister has HTN Social History Patient is with 2 adult children Patient reports rare EtOH use once every 3-4 months Patient is a lifelong nonsmoker Physical Exam Vital Signs Vital Signs Date Time Temp Pulse Resp B/P Pulse Ox O2 Delivery O2 Flow Rate FiO2 05/13/17 11:57 97.8 79 18 127/62 96 05/13/17 07:46 97.2 71 18 105/53 96 05/13/17 03:17 97.7 71 17 136/63 97 05/12/17 23:26 85 16 140/77 99 Room Air 05/12/17 20:59 82 16 151/67 99 Room Air 05/12/17 19:20 16 146/71 99 Room Air 05/12/17 19:05 98.6 88 16 171/114 98 Physical Exam GENERAL: This is a well-nourished, well-developed patient, in no apparent distress at this time. SKIN: No rashes, ecchymoses or lesions. Cool and dry. HEAD: Atraumatic. Normocephalic. No temporal or scalp tenderness. EYES: Extraocular motions intact. No scleral icterus. No injection or drainage. CARDIOVASCULAR: Regular rate and rhythm without murmurs, gallops, or rubs. RESPIRATORY: Clear to auscultation. Breath sounds equal bilaterally. No wheezes , rales, or rhonchi. GASTROINTESTINAL: Abdomen soft, mildly tender to palpation throughout abdomen worse in epigastric area, nondistended. Normoactive bowel sounds 4 MUSCULOSKELETAL: Extremities without clubbing, cyanosis, or edema. No joint tenderness, effusion, or edema noted. No calf tenderness. Negative Homans sign bilaterally. NEUROLOGICAL: Awake and alert. No focal deficits appreciated. Motor and sensory grossly within normal limits. Five out of 5 muscle strength in all muscle groups. Normal speech. Laboratory Laboratory Tests Test 05/12/17 05/12/17 18:30 20:55 White Blood Count 9.3 Red Blood Count 4.25 Hemoglobin 13.2 Hematocrit 38.5 Mean Corpuscular Volume 90.6 Mean Corpuscular Hemoglobin 31.1 Mean Corpuscular Hemoglobin 34.3 Concent Red Cell Distribution Width 12.3 Platelet Count 220 Mean Platelet Volume 8.8 Neutrophils (%) (Auto) 73.2 Lymphocytes (%) (Auto) 16.0 Monocytes (%) (Auto) 5.7 Eosinophils (%) (Auto) 0.7 Basophils (%) (Auto) 4.4 Neutrophils # (Auto) 6.8 Lymphocytes # (Auto) 1.5 Monocytes # (Auto) 0.5 Eosinophils # (Auto) 0.1 Basophils # (Auto) 0.4 CBC Comment DIFF FINAL Differential Comment Prothrombin Time 10.6 Prothromb Time International 1.0 Ratio Activated Partial 24.5 Thromboplast Time Sodium Level 136 Potassium Level 3.6 Chloride Level 100 Carbon Dioxide Level 28.6 Anion Gap 7 Blood Urea Nitrogen 12 Creatinine 0.69 Estimat Glomerular Filtration 83 Rate Random Glucose 113 Calcium Level 10.2 Total Bilirubin 2.0 Aspartate Amino Transf 365 (AST/SGOT) Alanine Aminotransferase 209 (ALT/SGPT) Alkaline Phosphatase 319 Troponin I LESS THAN 0.02 Total Protein 7.8 Albumin 3.6 Lipase 45315 Urine Color YELLOW Urine Turbidity CLEAR Urine pH 6.0 Urine Specific [place] 1.025 Urine Protein NEG Urine Glucose (UA) NEG Urine Ketones 15 Urine Occult Blood NEG Urine Nitrite NEG Urine Bilirubin NEG Urine Leukocyte Esterase TRACE Urine RBC 0-3 Urine WBC 3-5 Urine Squamous Epithelial 0-5 Cells Urine Amorphous Sediment MOD Urine Bacteria OCC Microscopic Urinalysis Comment CULT NOT INDICATED Result Diagram: 05/12/17182905/12/17 1830 Imaging Last Impressions Cholangiopancreatography MRI 05/12/17 0000 Signed Impressions: Service Date/Time: May 23:09 - CONCLUSION: 1. Gallbladder distention and ductal dilatation without evidence of stone. 2. Pericholecystic fluid is present characteristic of cholecystitis Han Troncoso MD Abdomen/Pelvis CT 05/12/17 0000 Signed Impressions: Service Date/Time: May 20:26 - CONCLUSION: 1. Abnormal appearance to the biliary system with dilation of both the intra-and extrahepatic biliary system, a distended gallbladder, and free fluid in Warner's pouch. No calcified stones in the gallbladder or biliary ducts. The findings suggest obstruction at the level of the ampulla. 2. Symmetric appearing soft tissue masses in the pelvis which appear to connect with the vagina (history of hysterectomy). This finding is of uncertain significance. Recommend correlation with pelvic examination. Sami Bermudez MD Assessment and Plan Problem List: (1) Gallstone pancreatitis ICD Code: K85.10 Status: Acute Assessment and Plan This is a 68-year-old female patient with past medical history which includes arthritis, seasonal allergies and recent herniated disc. Patient presented to the hospital with complaints of 3-4 days of abdominal pain. Patient reports the pain is located between the rib cage to her pelvis with radiation to the back. Associated with diarrhea 2 days and nausea but no vomiting On presentation to the total bilirubin 2.0, AST 365, ALT 209 alkaline phosphatase 319 and lipase 13,987 Gallstone pancreatitis Nothing by mouth at this time discussed with Dr. Barahona promotional marketing analyst recommends clear liquid diet Initiate clear liquids CT abdomen and pelvis reviewed and reveals1. Abnormal appearance to the biliary system with dilation of both the intra-and extrahepatic biliary system, a distended gallbladder, and free fluid in Warner's pouch. No calcified stones in the gallbladder or biliary ducts. The findings suggest obstruction at the level of the ampulla. 2. Symmetric appearing soft tissue masses in the pelvis which appear to connect with the vagina (history of hysterectomy). This finding is of uncertain significance. Recommend correlation with pelvic examination. Cholangiopancreatography MRI 05/12/17 reviewed and revealed 1. Gallbladder distention and ductal dilatation without evidence of stone. 2. Pericholecystic fluid is present characteristic of cholecystitis IV fluid Normal Saline at 100 cc per hour Dilaudid 1 mg IV every 3 hours as needed for pain as well as BY MOUTH NEEDED FOR PAIN Consult gastroenterology appreciate their input and assistance Consults General surgery appreciate input and assistance also Awaiting follow-up labs which were ordered for 05/13/17 0600 Nausea Zofran as needed DVT prophylaxis with SCDs/TEDS and Lovenox This note was transcribed by babs Casey I, Dr. Clem Sinclair personally performed the history, physical exam, and medical decision making; and confirmed the accuracy of the information in the transcribed note. Authenticated by Dr. Clem Sinclair on 05/13/17 at 15:30. Physician Certification 2 Midnight Certification Type: Admission for Inpatient Services Order for Inpatient Services The services are ordered in accordance with Medicare regulations or non- Medicare payer requirements, as applicable. In the case of services not specified as inpatient-only, they are appropriately provided as inpatient services in accordance with the 2-midnight benchmark. Estimated LOS (days): 3 days is the estimated time the patient will need to remain in the hospital, assuming treatment plan goals are met and no additional complications. Post-Hospital Plan: Lulu Dill May 13, 2017 13:07 Clem Mack MD May 13, 2017 15:30
[2017-05-13 15:38] VITALS: BP 134/61; PULSE 82; RESP 18; TEMP 98.6; O2SAT 100
[2017-05-13] MEDS: ENOXAPARIN SODIUM 40 MG/0.4 ML SYRINGE SQ SCH (15:50)
--- NOTE | 2017-05-13 17:30 | PD.CONS ---
GI Consult GI Consult Thank you for the consultation, Full consult dictated ASSESSMENT/PLAN: 1. Acute pancreatitis 2. Elevated lfts plan. 1. Monitor labs 2. Symptoms are improving suspect passed stone or sludge 3. Will need further work up but if symptoms resolve and labs improve then will hold off on urgent eus/ercp. It was a pleasure seeing Shirley Dupont Thank you for this consult. Entered by: Isiah Banerjee MD May 13, 2017 17:30
[2017-05-13 17:59] LABS: AUTOMATED NEUTROPHIL # 5.5 TH/MM3 (1.8-7.7); BASOPHIL % 0.5 % (0.0-2.0); EOSINOPHIL # 0.1 TH/MM3 (0-0.4); EOSINOPHIL % 0.9 % (0.0-4.0); HEMO FLAGS DIFF FINAL; LYMPH % 17.8 % (9.0-44.0); LYMPHOCYTE # 1.3 TH/MM3 (1.0-4.8); MEAN CELL VOLUME 94.3 FL (80.0-100.0); MEAN CORPUSCULAR HEMOGLOBIN 31.9 PG (27.0-34.0); MEAN CORPUSCULAR HGB CONC 33.8 % (32.0-36.0); MONO % 4.8 % (0.0-8.0); PLATELET COUNT 195 TH/MM3 (150-450); RED BLOOD COUNT 3.82 MIL/MM3 (4.00-5.30); RED CELL DISTRIBUTION WIDTH 13.4 % (11.6-17.2); WHITE BLOOD COUNT 7.3 TH/MM3 (4.0-11.0)
[2017-05-13 18:23] LABS: ANION GAP 8 MEQ/L (5-15); AST (GOT) 156 U/L (15-37); BICARBONATE 24.4 MEQ/L (21.0-32.0); BLOOD UREA NITROGEN 14 MG/DL (7-18); CHLORIDE 108 MEQ/L (98-107); GLOMERULAR FILTRATION RATE 111 ML/MIN (>89); POTASSIUM 3.7 MEQ/L (3.5-5.1); SODIUM (NA) 140 MEQ/L (136-145)
[2017-05-13 18:24] LABS: ALT (GPT) 148 U/L (10-53)
[2017-05-13 18:26] LABS: ALKALINE PHOSPHATASE 286 U/L (45-117); TOTAL BILIRUBIN ADULT 0.7 MG/DL (0.2-1.0)
--- NOTE | 2017-05-13 18:43 | MB ---
cc: DIAN PLATA DATE OF CONSULTATION 05/13/17 1943 [employer] AD[employer]ER Dr. Ulises Perez. REASON FOR CONSULTATION Acute pancreatitis. HISTORY OF PRESENT ILLNESS This is a very pleasant 71-year-old female who is in relatively good health who came into the hospital complaining of having sudden onset of abdominal discomfort about three or four days ago, located in the mid abdomen, sharp shooting in intensity as well as radiating to her back. Her pain was associated with occasional waves of nausea but no vomiting. Denied any melena, hematochezia, hematemesis, no chest pain, dyspnea. She had no travel history or denies ever having similar symptoms in the past. Due to the pain worsening, she finally came into the hospital for further workup and evaluation. She underwent lab work which included elevated LFTs including total bili 2.0, AST 365, ALT 219, alk phos 319 and a lipase of 13,000. Due to this, she underwent imaging test including a CT scan of the abdomen and pelvis which was significant for dilation of the intra and extra-hepatic, measuring 1.8 cm and smoothly tapering down to the ampulla, gallbladder is distended. No stones were noted. Inflammatory changes around the pancreas. An MRI was then ordered showing she distended gallbladder with ductal Dilation without evidence of stones,CBD was measured 11 mm without stones and fluid around the GB was also present indicating cholecystitis. Upon coming to the emergency room, she received Toradol and her abdominal symptoms actually improved to the point now she is overall feeling better. Denies any nausea or vomiting at this time and her pain actually improved. There have not been any repeat labs but GI was consulted to help in the workup and management. PAST MEDICAL HISTORY Arthritis PAST SURGICAL HISTORY 1. Tonsillectomy, 2. Hysterectomy. 3. Bladder sling 4. History of colonoscopy including colon polyp removal. MEDICATIONS 1. Advair 2. Montelukast 3. Flonase. 4. Estradiol. ALLERGIES PENICILLIN FAMILY HISTORY No GI malignancies SOCIAL HISTORY . Denies any tobacco use. Drinks alcohol socially once every 3-4 months. REVIEW OF SYSTEMS A 12-point review of system was obtained my me and showed negative noncontributory except what is mentioned in History of Present Illness. PHYSICAL EXAMINATION VITAL SIGNS: Temperature 98.6, 82, 18, 134/61, 100% on room air. GENERAL: Alert and oriented no focal deficits. EYES: Pupils equal, round and reactive to light. HEENT: Mucosa membranes moist and pink. Atraumatic. NECK: Supple, nontender. No carotid bruits. No thyromegaly noted. CARDIOVASCULAR: Regular rate and rhythm. No murmurs heard. RESPIRATORY: Clear to auscultation. Non-labored breath sounds. ABDOMEN: Soft, minimal tenderness to palpation. No rebound appreciated. No Dick Patel's sign. No colon sign. No hepatosplenomegaly appreciated. No rebound appreciated. LYMPH NODES: No abnormal lymphadenopathy noted. GENITOURINARY:: No CVA tenderness noted. MUSCULOSKELETAL: Normal range of motion. NEUROLOGIC: Alert and oriented, no focal deficits. PSYCHIATRIC: Cooperative mood and affect. LABORATORY DATA As described above. IMPRESSION 1. Acute pancreatitis, may be secondary to past sludge or biliary stone. Mild 2. Dilated common bile duct, intra and extra hepatic ducts. May be secondary to passage of biliary stone. The CT scan and MRI failed to reveal any further up obstruction and the patient is clinically improved indicating slightly passage of stones. 3. Elevated LFTs secondary to above. 4. Abnormal pelvic masses of unclear etiology, will need further workup. RECOMMENDATIONS 1. I had a long discussion regarding the possible etiologies of her pancreatitis and abdominal discomfort and elevated liver function tests. May be secondary to passed stone possibility of passed sludge or stone debris. 2. Likely element of acute on chronic cholecystitis. At this time, I offered having her undergo endoscopic ultrasound and an ERCP for diagnostic and therapeutic reasons, but the patient is improving overall and therefore would like to hold off on any procedures if they are not absolutely necessary. Given no signs or symptoms of any cholangitis and overall improvement in her symptoms, I believe this is a reasonable course. I explained that once the acute symptoms improve and as long as the LFTs are down trending and that if symptoms do not return then we will hold off any endoscopic procedures. I did explain that once all this improves, she will need an outpatient workup including an outpatient with endoscopic ultrasound to rule out any occult pathology. Additionally she may also need surgical intervention for her gallbladder depending on her symptoms. She is agreeable to following up outpatient and is very agreeable and appreciative of the conservative approach in order to avoid any unnecessary procedures. Thank you for allowing our Clinic to help take care of thus patient. We will follow along with you and make recommendation as per the patient's clinical course. MD LILIBETH Cutler/ /5:31 PM /6:14 PM JOSE JUAN
[2017-05-13 20:30] VITALS: BP 142/66; PULSE 79; RESP 17; TEMP 97.3; O2SAT 100
[2017-05-14 00:20] VITALS: BP 115/50; PULSE 78; RESP 17; TEMP 97.1; O2SAT 99
[2017-05-14] MEDS: PANTOPRAZOLE SODIUM 40 MG VIAL IV PUSH SCH ×3 (00:22→23:33)
[2017-05-14 08:00] VITALS: BP 125/58; PULSE 78; RESP 18; TEMP 96; O2SAT 96
[2017-05-14 08:27] LABS: HEMATOCRIT 28.5 % (35.0-46.0); MEAN CELL VOLUME 94.7 FL (80.0-100.0); MEAN CORPUSCULAR HEMOGLOBIN 32.2 PG (27.0-34.0); PLATELET COUNT 144 TH/MM3 (150-450); RED BLOOD COUNT 3.01 MIL/MM3 (4.00-5.30); RED CELL DISTRIBUTION WIDTH 13.3 % (11.6-17.2); REVIEW FLAG FINAL; WHITE BLOOD COUNT 5.5 TH/MM3 (4.0-11.0)
[2017-05-14 08:59] LABS: ALKALINE PHOSPHATASE 198 U/L (45-117); ALT (GPT) 98 U/L (10-53); ANION GAP 10 MEQ/L (5-15); AST (GOT) 82 U/L (15-37); BICARBONATE 22.5 MEQ/L (21.0-32.0); BLOOD UREA NITROGEN 7 MG/DL (7-18); CHLORIDE 111 MEQ/L (98-107); GLOMERULAR FILTRATION RATE 148 ML/MIN (>89); POTASSIUM 3.7 MEQ/L (3.5-5.1); SODIUM (NA) 143 MEQ/L (136-145); TOTAL BILIRUBIN ADULT 0.5 MG/DL (0.2-1.0)
[2017-05-14] MEDS: DOCUSATE SODIUM 50 MG/SENNA 8.6 MG TAB PO SCH (09:00)
[2017-05-14] MEDS: SODIUM CHLORIDE 0.9% FLUSH 10 ML FLUSH IV FLUSH SCH ×2 (09:00→19:36)
[2017-05-14 12:00] VITALS: BP 142/70; PULSE 73; RESP 18; TEMP 96.7; O2SAT 100
--- NOTE | 2017-05-14 12:09 | HHI.PR ---
Subjective Remarks Patient denies cp/sob Patient is c/o greenish diarrhea for the last 3 days denies nausea or vomiting Denies abdominal pain Tolerating clear liquid diet Vital signs stable, patient afebrile. nausea has resolved Objective Vitals Vital Signs Date Time Temp Pulse Resp B/P Pulse Ox O2 Delivery O2 Flow Rate FiO2 05/14/17 08:00 96.0 78 18 125/58 96 05/14/17 00:20 97.1 78 17 115/50 99 05/13/17 20:30 97.3 79 17 142/66 100 05/13/17 15:38 98.6 82 18 134/61 100 05/13/17 11:57 97.8 79 18 127/62 96 I/O 05/13/17 05/13/17 05/13/17 05/14/17 05/14/17 05/14/17 06:59 14:59 22:59 06:59 14:59 22:59 Intake Total 0 ml 650 ml 1779 ml 983 ml Balance 0 ml 650 ml 1779 ml 983 ml Intake Oral 0 ml 650 ml 360 ml 120 ml IV Total 1419 ml 863 ml # Voids 1 2 6 20 # Bowel Movements 0 9 18 Result Diagram: 05/14/17 0609 05/14/17 0609 Imaging Last Impressions Cholangiopancreatography MRI 05/12/17 0000 Signed Impressions: Service Date/Time: May 23:09 - CONCLUSION: 1. Gallbladder distention and ductal dilatation without evidence of stone. 2. Pericholecystic fluid is present characteristic of cholecystitis Han Troncoso MD Abdomen/Pelvis CT 05/12/17 0000 Signed Impressions: Service Date/Time: May 20:26 - CONCLUSION: 1. Abnormal appearance to the biliary system with dilation of both the intra-and extrahepatic biliary system, a distended gallbladder, and free fluid in Warner's pouch. No calcified stones in the gallbladder or biliary ducts. The findings suggest obstruction at the level of the ampulla. 2. Symmetric appearing soft tissue masses in the pelvis which appear to connect with the vagina (history of hysterectomy). This finding is of uncertain significance. Recommend correlation with pelvic examination. Sami Bermudez MD Objective Remarks AAOx3, NAD S1S2 RRR, no MRG Clear lungs BL Abdomen is soft, mildly tender to palpation in the entire abdomen but most prominent on the epigastric region and hypogastric region. There is no edema in bilateral extremities Procedures None Medications and IVs Current Medications Medications (Trade) Dose Ordered Sig/Genaro Route Start Time Stop Time Status Last Admin Pantoprazole Sodium 40 mg 40 mg Q12H IV PUSH 05/12/17 23:00 05/14/17 10:55 (NS 1000 ml Inj) 1,000 ml @ 100 mls/hr Q10H IV 05/12/17 22:07 05/13/17 20:28 (NS Flush) 2 ml UNSCH PRN IV FLUSH 05/12/17 22:15 (NS Flush) 2 ml BID IV FLUSH 05/13/17 09:00 05/14/17 09:00 (Zofran Inj) 4 mg Q6H PRN IVP 05/12/17 22:15 (Tylenol) 650 mg Q6H PRN PO 05/12/17 22:15 ([place] 5-325 Mg) 1 tab Q4H PRN PO 05/12/17 22:15 05/13/17 15:48 (Dilaudid Pf Inj) 0.5 mg Q3H PRN IV 05/12/17 22:15 (Bridgette-Colace) 1 tab BID PO 05/13/17 09:00 05/13/17 11:00 (Milk Of Magnesia Liq) 30 ml Q12H PRN PO 05/12/17 22:15 (Senokot) 17.2 mg Q12H PRN PO 05/12/17 22:15 (Dulcolax Supp) 10 mg DAILY PRN RECTAL 05/12/17 22:15 (Lactulose Liq) 30 ml DAILY PRN PO 05/12/17 22:15 (Lovenox Inj) 40 mg Q24H SQ 05/13/17 15:00 05/13/17 15:50 Urinary Catheter: No Vascular Central Line Catheter: No A/P Problem List: (1) Acute pancreatitis ICD Code: K85.90 Status: Acute Plan: Patient was admitted to the medical floor Acute pancreatitis possibly secondary to passed biliary stone or sludge CT scan and MRI failed to reveal any further upper obstruction Possible element of acute on chronic cholecystitis. GI consulted appreciate recommendations. Given no signs of symptoms of cholangitis and improvement in the patient's symptoms ERCP was withheld. Patient however states that she might want to go forward with the endoscopic ultrasound as an outpatient and she will discuss this with gastroenterology. Continue clear liquid diet and advance as per gastroenterology recommendations. Gen. surgery consulted as well, the patient will need cholecystectomy, however this will be done as an outpatient. (2) Abdominal pain ICD Code: R10.9 Status: Acute Plan: Due to above. Much improved. Continue pain control with oral [place] and IV Dilaudid. (3) Pelvic mass in female ICD Code: R19.00 Status: Acute Plan: CT scan of the abdomen and pelvis showed symmetric appearing soft tissue masses in the pelvis. As per the patient she had uterine fibroids and ovarian masses in the past. I will order a pelvic ultrasound and consult MEN'S SWIM COACH for further recommendations and further assessment of this pelvic masses. (4) Transaminitis ICD Code: R74.0 Status: Acute Plan: Transaminitis with elevated bilirubin on admission. Bilirubin of 2.0, AST of 365, LDL 209, now trending down and bilirubin down to normal levels. Transaminitis likely secondary to past stone versus biliary sludge. Continue to monitor liver function tests. (5) Hyperglycemia ICD Code: R73.9 Status: Acute Plan: Likely stress related. Glucose now within normal range. (6) Diarrhea ICD Code: R19.7 Status: Acute Plan: Patient denies recent antibiotic use. He may be related to pancreatitis and hepatic enzyme deficiency. I will order some stool studies including stool fat for malabsorption and also check stool for C. difficile although the patient denies any recent antibiotic use. If stool studies are negative for infectious diarrhea then we'll start the patient on Imodium. I will start the patient on active assistive esophageal for this. I will discontinue any laxatives or stool softeners. Assessment and Plan GI prophylaxis. Continue PPI. DVT prophylaxis: Continue SCDs, Lovenox subcutaneously Problem Qualifiers (1) Abdominal pain: Qualified Code: R10.13 - Epigastric pain Clem Mack MD May 14, 2017 12:09
[2017-05-14] MEDS: LACTOBACILLUS ACIDOPHILUS 1 GM PACKET PO SCH ×2 (13:00→16:17)
--- NOTE | 2017-05-14 13:35 | HHI.PR ---
Addendum to Inpatient Note Addendum Reason: Additional Documentation Additional Information Patient's called me this AM concerned that they didn't understand the plan of care. I wasn't aware of her hospitalization as I hadn't opened the [place] site yesterday, but by his description tried to answer his questions. I was able to review the chart and explain plan of care with him this afternoon (which did correlate with our discussion this AM). Ms. Dupont has really been healthy. She is s/p hysterectomy and ooporectomy in the distant past due to uterine fibroids and has been on low dose estradiol for many years. She hasn't been able to tolerate being off it due to hot flashes, vaginal dryness, and general malaise. Her exams have been unremarkable in the office on her annual exams and there has been no reason to do any pelvic imaging in my years of caring for her. I see she is pending pelvic u/s and INVENTORY TRANSCRIBER eval which is definitely appropriate. She has been having significant low back pain just recently and had MRI of the low back that showed a slipped disc with impingement of the nerve and all those symptoms seemed to correlate well with her back and leg radiculopathy. She is pending epidural steroid injection to help with that but her appointment isn't for several weeks into the future. Her current problem is more related to diarrhea then anything else. I see her hbg has declined also which may be dilutional as she has had a lot of IVF due to the pancreatitis. Apparently there is no record of blood in her stool. Kaykay Sheppard MD May 14, 2017 13:35
[2017-05-14 16:00] VITALS: BP 141/79; PULSE 78; RESP 18; TEMP 96.4; O2SAT 100
[2017-05-14] MEDS: ENOXAPARIN SODIUM 40 MG/0.4 ML SYRINGE SQ SCH (16:17)
[2017-05-14 16:28] LABS: HEMATOCRIT 31.1 % (35.0-46.0); PLATELET COUNT 167 TH/MM3 (150-450); RED CELL DISTRIBUTION WIDTH 13.1 % (11.6-17.2); REVIEW FLAG FINAL; WHITE BLOOD COUNT 6.2 TH/MM3 (4.0-11.0)
--- NOTE | 2017-05-14 17:16 | HHI.GIFU ---
GI Follow-up Note Consult Follow-up Subjective: Patient laying in bed comfortably, no new complaints except had several episodes of diarrhea. No abdo pain, tolerating cld. Objective: PHYSICAL EXAMINATION: Vitals signs stable No fever HEENT: Pupils round and reactive to light; normocephalic; atraumatic; no jaundice. Throat is clear. NECK: Neck is supple, no JVD, no lymphadenopathy. CHEST: Chest is clear to auscultation and percussion. CARDIAC: Regular rate and rhythm with no murmur gallop or rubs. ABDOMEN: Soft, nondistended, nontender; no hepatosplenomegaly; bowel sounds are present in all four quadrants. EXTREMITIES: No clubbing, cyanosis, or edema. SKIN: Normal; no rash; no jaundice. MANAGER CREDIT: No focal deficits; alert and oriented times three. Available Data (labs, X- Rays, Procedures) : reviewed Ct, MRI and LABS ASSESSMENT/PLAN: 1. Acute pancreatitis resolving 2. Elevated LFTs down trending 3. B/L soft tissue mass in the pelvis PLAN: 1. Continue to monitor LFTs. jassi, lip 2. CLD and slowly advance 3. No plan for EUS or ERCP at this time (symptoms resolved, labs down trending) 4. D/w pt recommend EUS possible ERCP once acute pancreatitis episode has resolved (will get scheduled as outpt 3-4 wk) 5. Your MOTORIZED SQUAD COMMANDING OFFICER work up. It was a pleasure seeing Shirley Dupont. Thank you for this consult. Entered by: Isiah Banerjee MD May 14, 2017 17:15
--- NOTE | 2017-05-14 18:36 | RADRPT ---
EXAM DATE/TIME: 05/14/2017 17:51 [place] COMPARISON: No previous studies available for comparison. INDICATIONS : Pelvic mass. MEDICAL HISTORY : Asthma. Abdominal pain. Nausea. Arthritis. Back pain. SURGICAL HISTORY : Hysterectomy. Bladder suspension surgery. ENCOUNTER: Initial ACUITY: 1 day PAIN SCORE: 0/10 LOCATION: Bilateral pelvis MEASUREMENTS: UTERUS: Surgically absent ENDOMETRIAL STRIPE: Non visualized RIGHT OVARY: cm Surgically absent LEFT OVARY: Surgically absent FINDINGS: There is a structure visualized between around the upper vagina which has complex echotexture but is soft tissue. This doesn't demonstrate shadowing but measures about 8.4 x 3.1 x 2.7 cm. Slightly incre ased vascularity to this area. There is previous hysterectomy and removal of the ovaries. CONCLUSION: 1. The uterus and ovaries are absent by history. There is an echogenic structure around the fornix of the vagina measuring up to 8.4 x 3.1 x 2.7 cm. This may be related to postsurgical change. This prob ably correlates with the recent finding on CT. Bj Cadena MD on May 14, 2017 at 18:30 Board Certified Radiologist. This report was verified electronically.
--- NOTE | 2017-05-14 20:00 | PD.CONS ---
HPI Chief Complaint CT and ultrasound findings showed a soft tissue mass in the pelvis Date Seen: May 14, 2017 Travel History International Travel<30 Days: No Contact w/Intl Traveler<30Days: No Known Affected Area: No History of Present Illness HPI Patient is a 71-year-old white female para 2 who is 20 years status post CHAS/ BSO for fibroids and urinary incontinence she had a bladder tack up same time as hysterectomy is in the hospital for cholecystitis and pancreatitis and upper abdominal pain. She has no pelvic complaints or problems no pain no discharge no bleeding. She takes oral estrogen replacement therapy form of estradiol and has no complication, she has a Dr. Phillips is a family practice or internal medicine doctor. Patient sees this for pelvic exams and her hormones during her workup here for her upper abdominal problem a CT scan was done which showed a soft tissue mass at the top of the vagina just behind the cuff, ultrasound show similar finding of a soft tissue density just above the cuff and below the bladder Para: 2 : 2 Last Menstrual Period: May 14, 2017 History Obstetric History Obstetric History 2 vaginal deliveries Past Surgical History Narrative Surgical CHAS/BSO and bladder tack procedure in the mid Social History Alcohol Use: No Tobacco Use: No Substance Abuse: No Allergies-Medications (Allergen,Severity, Reaction): Coded Allergies: Penicillin (Verified Allergy, Severe, Shortness of Breath, 05/12/17) Home Meds Active Scripts Oxycodone-Acetaminophen 7.5-325 mg Tab1 Tab PO Q4H PRN (PAIN) #40 TAB Ref 0 Prov:Kaykay Phillips MD 03/22/17 Reported Medications Montelukast 10 Mg Tab10 Mg PO HS #30 TAB Ref 0 03/22/17 Fluticasone-Salmeterol Inh (Advair Diskus Inh)250-50 Mcg/Blist Aer1 Puff INH HS #1 INHALER Ref 0 Rinse mouth after use. 03/22/17 Fluticasone Nasal [place] (Flonase Nasal [place])50 Mcg/Act Spray50 Mcg EACH NARE HS #1 BOTTLE Ref 0 03/22/17 Estradiol 0.5 Mg Tab0.5 Mg PO #30 TAB Ref 0 03/22/17 Review of Systems General / Constitutional: No: Fever, Weight Gain, Chills, Other Eyes: No: Diploplia, Blurred Vision, Visual changes, Pain, Photophobia HENT: No: Headaches, Vertigo, Lightheadedness Cardiovascular: No: Irregular Rhythm, Chest Pain or Discomfort, Palpitations, Tachycardia, Syncope, Varicosities, Edema, Cyanosis Respiratory: No: Cough, Short of Breath, Other Gastrointestinal: Abdominal Pain, No: Nausea, Vomiting, Diarrhea Genitourinary: No: Decreased Urinary Output, Oliguria Musculoskeletal: No: Limited ROM, Weakness, Cramping, Edema, Pain Skin: No Rash, No Itching, No Dryness, No Lumps, No Change in Pigmentation, No Change in Nails, No Alopecia, No Lesions Neurologic: No: Weakness, Dizziness, Syncope, Focal Abnormalities, Coordination Problem, Headache, Slurred Speech, Seizures Psychiatric: No: Depression, Suicidal Ideations, Homicidal Ideation Endocrine: No: Heat Intolerance, Cold Intolerance, Polydipsia, Polyuria, Other Physical Exam Vital Signs Date Time Temp Pulse Resp B/P Pulse Ox O2 Delivery O2 Flow Rate FiO2 05/14/17 16:00 96.4 78 18 141/79 100 05/14/17 12:00 96.7 73 18 142/70 100 05/14/17 08:00 96.0 78 18 125/58 96 05/14/17 00:20 97.1 78 17 115/50 99 05/13/17 20:30 97.3 79 17 142/66 100 Narrative GENERAL: Well-nourished, well-developed thin patient. SKIN: Warm and dry. HEAD: Normocephalic and atraumatic. EYES: No scleral icterus. No injection or drainage. ENT: No nasal drainage noted. Mucous membranes pink. Airway patent. NECK: Supple, trachea midline. No JVD. CARDIOVASCULAR: Regular rate and rhythm without murmurs, gallops, or rubs. RESPIRATORY: Breath sounds equal bilaterally. No accessory muscle use. BREASTS: Bilateral exam showed no masses , no retractions, no nipple discharge. ABDOMEN/GI: Abdomen soft, non-tender, bowel sounds present, no rebound, no guarding Pelvic exam-normal external genitalia with slight atrophy, vagina palpates as normal, cuff palpated, on bimanual exam there is this small fullness on the right adnexal area is nontender and not firm nothing else palpated on pelvic exam and a rectal was not done tonight she's having diarrhea and is having some GI testing done soon and she specifically did not want me to do that part of the exam EXTREMITIES: No cyanosis or edema. BACK: Nontender without obvious deformity. No CVA tenderness. NEUROLOGICAL: Awake and alert. Motor and sensory grossly within normal limits. Five out of 5 muscle strength in all muscle groups. Normal speech. Data Data Orders Cbc No Diff, Includes Plts (05/14/17 13:00) Stool Lytes (05/14/17 12:22) Stool Ova And Parasite Screen (05/14/17 12:22) Stool Wbc (Leukocytes) (05/14/17 12:22) Occult Blood (Hemoccult) Stool (05/14/17 12:22) Enteric Path (Stool) (05/14/17 12:22) Stool Afb Culture And Stain (05/14/17 12:22) Stool Reducing Substance (05/14/17 12:22) Specimen To Be Collected PRN (05/14/17 12:22) Specimen To Be Collected PRN (05/14/17 12:22) Specimen To Be Collected PRN (05/14/17 12:22) C Diff Toxin Pcr (05/14/17 12:22) Isolation 08,20 (05/14/17 12:22) Us Pelvis Comp Neon Glass Blower/Non-Preg (05/14/17 ) Consult Gynecology (05/14/17 ) Complete Blood Count With Diff (05/15/17 06:00) Comprehensive Metabolic Panel (05/15/17 06:00) Magnesium (Mg) (05/15/17 06:00) Phosphorus (Po4) (05/15/17 06:00) Lipase (05/15/17 06:00) Lactobacillus Acidophilus Pkt (Lactinex (05/14/17 13:00) (Hub Use Only)Inp Phy Cons/Ref (05/14/17 ) Labs Laboratory Tests Test 05/14/17 05/14/17 06:09 15:45 White Blood Count 5.5 6.2 Red Blood Count 3.01 3.30 Hemoglobin 9.7 10.6 Hematocrit 28.5 31.1 Mean Corpuscular Volume 94.7 94.0 Mean Corpuscular Hemoglobin 32.2 32.0 Mean Corpuscular Hemoglobin 34.0 34.0 Concent Red Cell Distribution Width 13.3 13.1 Platelet Count 144 167 Mean Platelet Volume 9.3 9.0 Sodium Level 143 Potassium Level 3.7 Chloride Level 111 Carbon Dioxide Level 22.5 Anion Gap 10 Blood Urea Nitrogen 7 Creatinine 0.42 Estimat Glomerular Filtration 148 Rate Random Glucose 64 Calcium Level 7.5 Total Bilirubin 0.5 Aspartate Amino Transf 82 (AST/SGOT) Alanine Aminotransferase 98 (ALT/SGPT) Alkaline Phosphatase 198 Total Protein 5.3 Albumin 2.5 Lipase 395 MDM Interpretation(s) This patient is a 71-year-old white female para 2 who is in the hospital for GI issues including cholecystitis pancreatitis. On the CT of the abdomen and this workup mentioned above they saw a soft tissue mass in the deep pelvis right above the vagina and vaginal cuff. Patient had a hysterectomy CHAS/BSO and stress incontinence surgery 20 years ago, patient is sure that her ovaries out and she would be in her mid 50s at the time of surgery and I'm sure they removed those structures that surgery was done here but 20 years ago and the records are not available on exam there is only a slight fullness in the right adnexal area no distinct mass. No pain of any kind on the exam the ultrasound and CT findings are consistent with soft tissue area just above the vaginal cuff that could be related to adhesive disease or just adhesions from her previous surgery and from the bladder tack procedure which may even involve permanent suture and have caused the inflammatory reaction to have some increase in size of this soft tissue. There is no neoplastic appearance at all to this area and the patient's asymptomatic from the umbilicus down Plan Plan to check a CA-125 level just to cover all of our bases in this evaluation , if that is normal and nothing else need be done for her pelvic issue Admitting diagnosis: Gallstone Pancreatitis Diagnosis: pelvic soft tissue mass post op hyst BSO yrs go Condition: Stable Colten Dalton II, MD May 14, 2017 20:00
[2017-05-14 20:30] VITALS: BP 162/70; PULSE 70; RESP 18; TEMP 97.8; O2SAT 98
[2017-05-14 22:27] LABS: C. DIFF EPI 027 PRESUMPTIVE NEGATIVE (NEGATIVE); C. DIFF TOXIN PCR NEGATIVE (NEGATIVE)
[2017-05-15] MEDS: SODIUM CHLOR 0.9% 1000 ML INJ 1,000 ML IV SCH ×2 (00:07→10:07)
[2017-05-15 00:24] VITALS: BP 129/52; PULSE 72; RESP 17; TEMP 97.3; O2SAT 96
[2017-05-15 08:00] VITALS: BP 138/68; PULSE 63; RESP 18; TEMP 97; O2SAT 98
[2017-05-15 08:40] LABS: AUTOMATED NEUTROPHIL # 2.2 TH/MM3 (1.8-7.7); BASOPHIL % 0.9 % (0.0-2.0); EOSINOPHIL # 0.2 TH/MM3 (0-0.4); EOSINOPHIL % 3.8 % (0.0-4.0); HEMATOCRIT 30.4 % (35.0-46.0); HEMO FLAGS DIFF FINAL; LYMPH % 34.4 % (9.0-44.0); LYMPHOCYTE # 1.4 TH/MM3 (1.0-4.8); MEAN CELL VOLUME 95.3 FL (80.0-100.0); MEAN CORPUSCULAR HEMOGLOBIN 31.5 PG (27.0-34.0); MEAN CORPUSCULAR HGB CONC 33.1 % (32.0-36.0); NEUT % 52.9 % (16.0-70.0); PLATELET COUNT 158 TH/MM3 (150-450); RED BLOOD COUNT 3.19 MIL/MM3 (4.00-5.30); RED CELL DISTRIBUTION WIDTH 13.2 % (11.6-17.2); WHITE BLOOD COUNT 4.2 TH/MM3 (4.0-11.0)
[2017-05-15 08:50] LABS: BICARBONATE 23.4 MEQ/L (21.0-32.0); CALCIUM-PROTEIN CORRECTED 8.3 MG/DL (8.5-10.1); MAGNESIUM 1.8 MG/DL (1.5-2.5); TOTAL BILIRUBIN ADULT 0.3 MG/DL (0.2-1.0)
[2017-05-15] MEDS: LACTOBACILLUS ACIDOPHILUS 1 GM PACKET PO SCH ×3 (09:00→17:08)
[2017-05-15] MEDS: SODIUM CHLORIDE 0.9% FLUSH 10 ML FLUSH IV FLUSH SCH ×2 (09:00→20:03)
[2017-05-15 09:04] LABS: POTASSIUM 2.9 MEQ/L (3.5-5.1)
[2017-05-15] MEDS: PANTOPRAZOLE SODIUM 40 MG VIAL IV PUSH SCH ×2 (11:00→23:05)
[2017-05-15 12:00] VITALS: BP 156/84; PULSE 66; RESP 18; TEMP 96.1; O2SAT 100
--- NOTE | 2017-05-15 13:00 | HHI.GIFU ---
GI Follow-up Note Consult Follow-up Subjective: Patient laying in bed comfortably, no new complaints except diarrhea. Still on going of unclear etiology. no abdo pain, no cramping. tolerating diet well Objective: PHYSICAL EXAMINATION: Vitals signs stable No fever HEENT: Pupils round and reactive to light; normocephalic; atraumatic; no jaundice. Throat is clear. NECK: Neck is supple, no JVD, no lymphadenopathy. CHEST: Chest is clear to auscultation and percussion. CARDIAC: Regular rate and rhythm with no murmur gallop or rubs. ABDOMEN: Soft, nondistended, nontender; no hepatosplenomegaly; bowel sounds are present in all four quadrants. EXTREMITIES: No clubbing, cyanosis, or edema. SKIN: Normal; no rash; no jaundice. ELECTROCARDIOGRAPH TECHNICIAN: No focal deficits; alert and oriented times three. Available Data (labs, X- Rays, Procedures) : labs and imaging reviewed. ASSESSMENT/PLAN: 1. Acute pancreatitis 2. Acute diarrhea c-diff negative 3. chronic cholecystitis 4. Pelvic mass 5. Hypokalemia PLAN 1. Start Lomotil once per day 2. Start questran one packet daily 3. discussed with nurse need to replace potassium 4. Advance diet to regular. 5. Anticipate discharge once diarrhea is controlled from gi stand point. It was a pleasure seeing Shirley Dupont Thank you for this consult. Entered by: Isiah Banerjee MD May 15, 2017 12:59
[2017-05-15] MEDS: DIPHENOXYLATE/ATROPINE 2.5 MG/0.025 MG TAB PO SCH (13:48)
[2017-05-15] MEDS: CHOLESTYRAMINE 4 GM PACKET PO SCH (13:49)
[2017-05-15] MEDS: ENOXAPARIN SODIUM 40 MG/0.4 ML SYRINGE SQ SCH (13:49)
[2017-05-15] MEDS: POTASSIUM CHLOR 20 MEQ PREMIX 100 ML IV SCH ×2 (14:30→17:06)
[2017-05-15] MEDS ORDERED: POTASSIUM CHLORIDE 10 MEQ CONTROLLED RELEASE TAB PO ONE (15:00)
[2017-05-15 16:00] VITALS: BP 146/63; PULSE 71; RESP 18; TEMP 97.4; O2SAT 100
--- NOTE | 2017-05-15 18:07 | HHI.PR ---
Subjective Remarks Patient denies abdominal pain diarrhea stopped earlier today denies nausea or vomiting denies fevers/chills vital signs stable Objective Vitals Vital Signs Date Time Temp Pulse Resp B/P Pulse Ox O2 Delivery O2 Flow Rate FiO2 05/15/17 16:00 97.4 71 18 146/63 100 05/15/17 12:00 96.1 66 18 156/84 100 05/15/17 08:00 97.0 63 18 138/68 98 05/15/17 00:24 97.3 72 17 129/52 96 05/14/17 20:30 97.8 70 18 162/70 98 I/O 05/14/17 05/14/17 05/14/17 05/15/17 05/15/17 05/15/17 07:00 15:00 23:00 07:00 15:00 23:00 Intake Total 983 ml 960 ml 917 ml 1158 ml 600 ml Balance 983 ml 960 ml 917 ml 1158 ml 600 ml Intake Oral 120 ml 960 ml 240 ml 240 ml 600 ml IV Total 863 ml 677 ml 918 ml # Voids 20 4 5 1 5 # Bowel Movements 18 10 2 0 5 Result Diagram: 05/15/17 0736 05/15/17 0736 Imaging Last Impressions Pelvis Ultrasound 05/14/17 0000 Signed Impressions: Service Date/Time: Sunday, May 14, 2017 17:51 - CONCLUSION: 1. The uterus and ovaries are absent by history. There is an echogenic structure around the fornix of the vagina measuring up to 8.4 x 3.1 x 2.7 cm. This may be related to postsurgical change. This probably correlates with the recent finding on CT. Bj Cadena MD Cholangiopancreatography MRI 05/12/17 0000 Signed Impressions: Service Date/Time: May 23:09 - CONCLUSION: 1. Gallbladder distention and ductal dilatation without evidence of stone. 2. Pericholecystic fluid is present characteristic of cholecystitis Han Troncoso MD Abdomen/Pelvis CT 05/12/17 0000 Signed Impressions: Service Date/Time: May 20:26 - CONCLUSION: 1. Abnormal appearance to the biliary system with dilation of both the intra-and extrahepatic biliary system, a distended gallbladder, and free fluid in Warner's pouch. No calcified stones in the gallbladder or biliary ducts. The findings suggest obstruction at the level of the ampulla. 2. Symmetric appearing soft tissue masses in the pelvis which appear to connect with the vagina (history of hysterectomy). This finding is of uncertain significance. Recommend correlation with pelvic examination. Sami Bermudez MD Objective Remarks AAOx3, NAD S1S2 RRR, no MRG Clear lungs BL Abdomen is soft, tender, nondistended. There is no edema in bilateral extremities Procedures None Medications and IVs Current Medications Medications (Trade) Dose Ordered Sig/Genaro Route Start Time Stop Time Status Last Admin Pantoprazole Sodium 40 mg 40 mg Q12H IV PUSH 05/12/17 23:00 05/15/17 11:00 (NS 1000 ml Inj) 1,000 ml @ 100 mls/hr Q10H IV 05/12/17 22:07 05/15/17 10:07 (NS Flush) 2 ml UNSCH PRN IV FLUSH 05/12/17 22:15 (NS Flush) 2 ml BID IV FLUSH 05/13/17 09:00 05/15/17 09:00 (Zofran Inj) 4 mg Q6H PRN IVP 05/12/17 22:15 (Tylenol) 650 mg Q6H PRN PO 05/12/17 22:15 (Ringgold 5-325 Mg) 1 tab Q4H PRN PO 05/12/17 22:15 05/13/17 15:48 (Dilaudid Pf Inj) 0.5 mg Q3H PRN IV 05/12/17 22:15 (Milk Of Magnesia Liq) 30 ml Q12H PRN PO 05/12/17 22:15 (Senokot) 17.2 mg Q12H PRN PO 05/12/17 22:15 (Lovenox Inj) 40 mg Q24H SQ 05/13/17 15:00 05/15/17 13:49 (Lactinex Pkt) 1 gm TID PO 05/14/17 13:00 05/15/17 17:08 (Lomotil Tab) 1 tab DAILY PO 05/15/17 13:00 05/15/17 13:48 Cholestyramine Resin 4 gm 4 gm DAILY PO 05/15/17 13:00 05/15/17 13:49 Potassium Chloride 100 ml @ 50 mls/hr Q2H IV 05/15/17 15:00 05/15/17 18:59 05/15/17 17:06 (Calcium Chloride Inj/NS Inj) 120 ml @ 120 mls/hr ONCE ONCE IV 05/15/17 19:00 05/15/17 19:59 A/P Problem List: (1) Acute pancreatitis ICD Code: K85.90 Status: Acute Plan: Patient was admitted to the medical floor Acute pancreatitis possibly secondary to passed biliary stone or sludge CT scan and MRI failed to reveal any further upper obstruction Possible element of acute on chronic cholecystitis. GI consulted appreciate recommendations. Given no signs of symptoms of cholangitis and improvement in the patient's symptoms ERCP was withheld. Patient however states that she might want to go forward with the endoscopic ultrasound as an outpatient and she will discuss this with gastroenterology. Continue clear liquid diet and advance as per gastroenterology recommendations. Gen. surgery consulted as well, the patient will need cholecystectomy, however this will be done as an outpatient. 05/15 patient has been advanced and is tolerating regular diet. Lipase is down to normal range. Transaminases are trending down and close to normal. (2) Abdominal pain ICD Code: R10.9 Status: Acute Plan: Pain control is being provided with oral Ringgold and IV Dilaudid. Continue. Abdominal pain has resolved. Continue to monitor. (3) Pelvic mass in female ICD Code: R19.00 Status: Acute Plan: CT scan of the abdomen and pelvis showed symmetric appearing soft tissue masses in the pelvis. As per the patient she had uterine fibroids and ovarian masses in the past. I will order a pelvic ultrasound and consult DIE OUT WORKER for further recommendations and further assessment of this pelvic masses. 05/15 appreciate DIE OUT WORKER recommendations. DIE OUT WORKER ultrasound shows absent uterus and ovaries concordant with the patient's history of total abdominal hysterectomy and bilateral salpingo-oophorectomy. There is an echogenic structure around the fornix of the vagina which may be related to postsurgical change and correlates to the appreciation of the DIE OUT WORKER physician. CTA 125 has been ordered and is normal. Minus observed on CT scan is likely due to postsurgical changes. (4) Transaminitis ICD Code: R74.0 Status: Acute Plan: Transaminitis with elevated bilirubin on admission. Bilirubin of 2.0, AST of 365, LDL 209, now trending down and bilirubin down to normal levels. Transaminitis likely secondary to past stone versus biliary sludge. Continue to monitor liver function tests. (5) Hyperglycemia ICD Code: R73.9 Status: Acute Plan: Likely stress related. Glucose now within normal range. (6) Diarrhea ICD Code: R19.7 Status: Acute Plan: Patient denies recent antibiotic use. He may be related to pancreatitis and hepatic enzyme deficiency. I will order some stool studies including stool fat for malabsorption and also check stool for C. difficile although the patient denies any recent antibiotic use. If stool studies are negative for infectious diarrhea then we'll start the patient on Imodium. I will start the patient on active assistive esophageal for this. I will discontinue any laxatives or stool softeners. 05/15 C. difficile negative. Patient has been started on Lomotil and Questran and diarrhea has improved. (7) Hypokalemia ICD Code: E87.6 Status: Acute Plan: Likely due to poor oral intake in this past reviews days and also lost through diarrhea and urine with IV fluid administration. Potassium levels 2.9, IV and oral potassium ordered and be replaced. We'll recheck BMP in a.m. (8) Hypocalcemia ICD Code: E83.51 Status: Acute Plan: Also been multifactorial due to acute pancreatitis and poor oral intake. I will replace with IV calcium chloride. Recheck calcium levels in the morning. Assessment and Plan GI prophylaxis. Continue PPI. DVT prophylaxis: Continue SCDs, Lovenox subcutaneously Discharge Planning Possible discharge in a.m. pending resolution of diarrhea, resolution of hypokalemia and hypocalcemia. Problem Qualifiers (1) Abdominal pain: Qualified Code: R10.13 - Epigastric pain Clem Mack MD May 15, 2017 18:07
[2017-05-15] MEDS ORDERED: CALCIUM CHLORIDE INJ 2 GM in SODIUM CHLORIDE 0.9% INJ 100 ML IV ONE (19:00)
[2017-05-15 20:35] VITALS: BP 157/70; PULSE 71; RESP 17; TEMP 97.9; O2SAT 98
[2017-05-16 00:20] VITALS: BP 154/68; PULSE 64; RESP 17; TEMP 97.3; O2SAT 96
[2017-05-16 08:00] VITALS: BP 140/60; PULSE 64; RESP 18; TEMP 97.3; O2SAT 97
[2017-05-16] MEDS: CHOLESTYRAMINE 4 GM PACKET PO SCH (08:40)
[2017-05-16] MEDS: SODIUM CHLORIDE 0.9% FLUSH 10 ML FLUSH IV FLUSH SCH (08:40)
[2017-05-16] MEDS: LACTOBACILLUS ACIDOPHILUS 1 GM PACKET PO SCH ×2 (08:40→12:53)
[2017-05-16] MEDS: DIPHENOXYLATE/ATROPINE 2.5 MG/0.025 MG TAB PO SCH (08:41)
[2017-05-16 09:20] LABS: ANION GAP 8 MEQ/L (5-15); AST (GOT) 30 U/L (15-37); BLOOD UREA NITROGEN 3 MG/DL (7-18); CHLORIDE 107 MEQ/L (98-107); GLOMERULAR FILTRATION RATE 108 ML/MIN (>89); MAGNESIUM 1.8 MG/DL (1.5-2.5); POTASSIUM 3.7 MEQ/L (3.5-5.1); SODIUM (NA) 142 MEQ/L (136-145)
[2017-05-16 09:34] LABS: ALKALINE PHOSPHATASE 192 U/L (45-117); ALT (GPT) 66 U/L (10-53); TOTAL BILIRUBIN ADULT 0.2 MG/DL (0.2-1.0)
--- NOTE | 2017-05-16 11:19 | HHI.GIFU ---
GI Follow-up Note Consult Follow-up Subjective: Patient laying in bed comfortably, no new complaints, diarrhea resolved. abdo pain resolved. Objective: PHYSICAL EXAMINATION: Vitals signs stable No fever HEENT: Pupils round and reactive to light; normocephalic; atraumatic; no jaundice. Throat is clear. NECK: Neck is supple, no JVD, no lymphadenopathy. CHEST: Chest is clear to auscultation and percussion. CARDIAC: Regular rate and rhythm with no murmur gallop or rubs. ABDOMEN: Soft, nondistended, nontender; no hepatosplenomegaly; bowel sounds are present in all four quadrants. EXTREMITIES: No clubbing, cyanosis, or edema. SKIN: Normal; no rash; no jaundice. FORM LAYER: No focal deficits; alert and oriented times three. Available Data (labs, X- Rays, Procedures) : ASSESSMENT/PLAN: 1. Acute pancreatitis 2. Diarrhea 3. Elevated lfts PLAN 1. diet as tolerated 2. out pt follow up with Dr Perez. 3. No objection to discharge from GI stand point. It was a pleasure seeing Shirley Dupont Thank you for this consult. Entered by: Isiah Banerjee MD May 16, 2017 11:19
[2017-05-16 12:00] VITALS: BP 141/70; PULSE 73; RESP 18; TEMP 98; O2SAT 98
[2017-05-16] MEDS ORDERED: POTASSIUM PHOSPHATE/SODIUM PHOSPHATE 250 MG TAB PO SCH (12:00)
[2017-05-16] MEDS: PANTOPRAZOLE SODIUM 40 MG VIAL IV PUSH SCH (12:53)
[2017-05-16] MEDS ORDERED: LACTG PO (14:46)
[2017-05-16] MEDS ORDERED: CHOL4POW4 PO (14:46)
[2017-05-16] MEDS ORDERED: DIPH2.5T14 PO (14:46)
[2017-05-16] MEDS ORDERED: KPHOS250 PO (14:50)
--- NOTE | 2017-05-16 14:50 | HHI.DCPOC ---
Discharge Care Plan Diagnosis: (1) Abdominal pain (2) Acute pancreatitis (3) Hypokalemia (4) Hypocalcemia (5) Diarrhea (6) Hyperglycemia (7) Transaminitis Goals to Promote Your Health * To prevent worsening of your condition and complications * To maintain your health at the optimal level Directions to Meet Your Goals Take your medications as prescribed Follow your dietary instruction Follow activity as directed Keep your appointments as scheduled Take your immunizations and boosters as scheduled If your symptoms worsen call your PCP, if no PCP go to Urgent Care Center or Emergency Room Smoking is Dangerous to Your Health. Avoid second hand smoke Call the 24-hour hour crisis hotline for domestic abuse at Clem Mack MD May 16, 2017 14:50
--- NOTE | 2017-05-16 14:50 | HHI.DS ---
Discharge Summary Admission Date May 12, 2017 at 22:03 Discharge Date: May 16, 2017 Admitting Diagnosis Gallstone Pancreatitis (1) Acute pancreatitis ICD Code: K85.90 (2) Abdominal pain ICD Code: R10.9 (3) Pelvic mass in female ICD Code: R19.00 (4) Transaminitis ICD Code: R74.0 (5) Hyperglycemia ICD Code: R73.9 (6) Diarrhea ICD Code: R19.7 (7) Hypokalemia ICD Code: E87.6 (8) Hypocalcemia ICD Code: E83.51 Procedures None Brief History - From Admission Written by Lulu Casey, acting as scribe for Dr. Willson on 05/13/17 at 12:59. This is a 68-year-old female patient with past medical history which includes arthritis, seasonal allergies and recent herniated disc. Patient presented to the hospital with complaints of 3-4 days of abdominal pain. Patient reports the pain is located between the rib cage to her pelvis with radiation to the back. Patient describes the pain as a 9 out of 10 at its worse and is currently ," -1," out of 10. The pain was associated nausea but no vomiting. Patient with nausea was so bad that she has been unable to eat. Patient also reports 2 days of light colored diarrhea associated with abdominal cramping. Diarrhea has since resolved. Patient denies black tarry stools or bright red blood present. Patient offers no other complaints at this time. Patient denies shortness of breath, chest pain, fevers, chills or dysuria. CBC/BMP: 05/15/17 0736 05/16/17 0730 Significant Findings Laboratory Tests Test 05/13/17 05/14/17 05/14/17 05/15/17 16:50 06:09 15:45 07:36 Red Blood Count 3.82 MIL/MM3 3.01 MIL/MM3 3.30 MIL/MM3 3.19 MIL/MM3 (4.00-5.30) (4.00-5.30) (4.00-5.30) (4.00-5.30) Neutrophils (%) (Auto) 76.0 % (16.0-70.0) Chloride Level 108 MEQ/L 111 MEQ/L 112 MEQ/L (98-107) (98-107) (98-107) Random Glucose 141 MG/DL 64 MG/DL (74-106) (74-106) Aspartate Amino Transf 156 U/L (15-37) 82 U/L (15-37) 43 U/L (15-37) (AST/SGOT) Alanine Aminotransferase 148 U/L (10-53) 98 U/L (10-53) 77 U/L (10-53) (ALT/SGPT) Alkaline Phosphatase 286 U/L 198 U/L 191 U/L (45-117) (45-117) (45-117) Albumin 3.1 GM/DL 2.5 GM/DL 2.5 GM/DL (3.4-5.0) (3.4-5.0) (3.4-5.0) Lipase 1092 U/L 395 U/L (73-393) (73-393) Hemoglobin 9.7 GM/DL 10.6 GM/DL 10.0 GM/DL (11.6-15.3) (11.6-15.3) (11.6-15.3) Hematocrit 28.5 % 31.1 % 30.4 % (35.0-46.0) (35.0-46.0) (35.0-46.0) Platelet Count 144 TH/MM3 (150-450) Creatinine 0.42 MG/DL 0.38 MG/DL (0.50-1.00) (0.50-1.00) Calcium Level 7.5 MG/DL 7.4 MG/DL (8.5-10.1) (8.5-10.1) Total Protein 5.3 GM/DL 5.5 GM/DL (6.4-8.2) (6.4-8.2) Potassium Level 2.9 MEQ/L (3.5-5.1) Blood Urea Nitrogen 3 MG/DL (7-18) Protein Corrected Calcium 8.3 MG/DL (8.5-10.1) Phosphorus Level 2.0 MG/DL (2.5-4.9) Test 05/16/17 07:30 Blood Urea Nitrogen 3 MG/DL (7-18) Phosphorus Level 2.1 MG/DL (2.5-4.9) Alanine Aminotransferase 66 U/L (10-53) (ALT/SGPT) Alkaline Phosphatase 192 U/L (45-117) Total Protein 6.2 GM/DL (6.4-8.2) Albumin 2.9 GM/DL (3.4-5.0) Imaging Last Impressions Pelvis Ultrasound 05/14/17 0000 Signed Impressions: Service Date/Time: Sunday, May 14, 2017 17:51 - CONCLUSION: 1. The uterus and ovaries are absent by history. There is an echogenic structure around the fornix of the vagina measuring up to 8.4 x 3.1 x 2.7 cm. This may be related to postsurgical change. This probably correlates with the recent finding on CT. Bj Cadena MD Cholangiopancreatography MRI 05/12/17 0000 Signed Impressions: Service Date/Time: May 23:09 - CONCLUSION: 1. Gallbladder distention and ductal dilatation without evidence of stone. 2. Pericholecystic fluid is present characteristic of cholecystitis Han Troncoso MD Abdomen/Pelvis CT 05/12/17 0000 Signed Impressions: Service Date/Time: May 20:26 - CONCLUSION: 1. Abnormal appearance to the biliary system with dilation of both the intra-and extrahepatic biliary system, a distended gallbladder, and free fluid in Warner's pouch. No calcified stones in the gallbladder or biliary ducts. The findings suggest obstruction at the level of the ampulla. 2. Symmetric appearing soft tissue masses in the pelvis which appear to connect with the vagina (history of hysterectomy). This finding is of uncertain significance. Recommend correlation with pelvic examination. Sami Bermudez MD PE at Discharge AAOx3, NAD S1S2 RRR, no MRG Clear lungs BL Abdomen is soft, tender, nondistended. There is no edema in bilateral extremities Pt Condition on Discharge: Stable Discharge Disposition: Discharge Home Discharge Time: <= 30 minutes Discharge Instructions DIET: Follow Instructions for: Heart Healthy Diet Activities you can perform: Regular-No Restrictions Follow up Referrals: Gastroenterology - 2 Weeks with Ulises Perez MD PCP Follow-up - 1 Week with Kaykay Phillips MD Surgical - 1 Week with Emeka Douglas MD New Medications: Cholestyramine (Cholestyramine) 4 Gm/Pkt Powd 4 GM PO DAILY Diarrhea #20 PKT Diphenoxylate-Atropine (Diphenoxylate-Atropine) 2.5-0.025 Mg Tab 1 TAB PO DAILY Diarrhea #7 TAB Lactobacillus Acidophilus (Floranex) 1 Gm Pkt 1 GM PO TID Diarrhea #30 PKT Potassium Phosphate-Sodium Phosphate (K-Phos Neutral) 155-852-130 Mg Tab 250 MG PO Q8HR low phosphorus #6 TAB Continued Medications: Estradiol (Estradiol) 0.5 Mg Tab 0.5 MG PO Estrogen Supplements #30 Ref 0 TAB Fluticasone Nasal [place] (Flonase Nasal [place]ze[place]) 50 Mcg/Act [place] 50 MCG EACH NARE HS Allergies #1 Ref 0 BOTTLE Fluticasone-Salmeterol Inh (Advair Diskus Inh) 250-50 Mcg/Blist Aer 1 PUFF INH HS Rinse mouth after use. #1 Ref 0 INHALER Montelukast (Montelukast) 10 Mg Tab 10 MG PO HS #30 Ref 0 TAB Oxycodone-Acetaminophen (Oxycodone-Acetaminophen) 7.5-325 mg Tab 1 TAB PO Q4H PRN PAIN #40 Ref 0 TAB Clem Mack MD May 16, 2017 14:50
== END 2017-05-16 15:58 | disposition home or self-care (01) | DRG 439 ==
LOC: PHED 19:03 → PHEDA 22:03 → N06A 05-13 03:18
PROVIDERS: ADMIT Hospitalist; ATTEND Hospitalist
DX: K85.10 Biliary acute pancreatitis without necrosis or infection (principal); K81.2 Acute cholecystitis with chronic cholecystitis; M19.90 Unspecified osteoarthritis, unspecified site; R19.00 Intra-abdominal and pelvic swelling, mass and lump, unspecified site; R73.9 Hyperglycemia, unspecified; R19.7 Diarrhea, unspecified; E87.6 Hypokalemia; E83.51 Hypocalcemia; Z79.890 Hormone replacement therapy; N95.1 Menopausal and female climacteric states; M54.10 Radiculopathy, site unspecified
CPT/HCPCS: 74177; 74181; 76377; 76856; 80053; 81001; 82272; 82438; 83690; 83735; 84100; 84302; 84376; 84484; 84999; 85025; 85027; 85610; 85730; 86304; 87015; 87116; 87205; 87206; 87328; 87329; 87493; 87506; 93005; 96361; 96374; 96375; C9113; J1650; J1885; J2405; J3480; J7030; J7040; Q9967

== ENCOUNTER → 2017-09-07 | Day surgery (SDC) | payer MEDICARE, BC ==
[~2017-09-07] MED LIST changes: +ACETAMINOPHEN 1000 MG/100 ML 100 ML IV ONE; +BUPIVACAINE/EPINEPHRINE 0.25% PF 30 ML VIAL ONE; +CHOL4POW4 PO; +DIPH2.5T14 PO; +KETOROLAC TROMETHAMINE 30 MG/ML (IVP) VIAL IV PUSH ONE; +KPHOS250 PO; +LACTATED RINGER'S 1000 ML INJ 1,000 ML ONE; +LACTG PO; +MIDAZOLAM HCL 2 MG/2 ML VIAL ONE; +ONDANSETRON HCL 4 MG/2 ML VIAL IV PUSH ONE; +PROPOFOL 200 MG/20 ML AMP IV ONE; +SODIUM CHLOR 0.9% 250 ML BAG IV ONE; +VANCOMYCIN HCL 1000 MG VIAL ONE
--- NOTE | 2017-09-07 11:54 | MP ---
cc: SRAVAN HARDIN M.D., LOUIS M. MD BUCHANAN, SANDRA DATE OF PROCEDURE 09/07/2017 PROCEDURE Laparoscopic cholecystectomy. PREOPERATIVE DIAGNOSIS Previous gallstone pancreatitis. POSTOPERATIVE DIAGNOSIS Previous gallstone pancreatitis. ANESTHESIA General endotracheal. SURGEON MD Sky [employer] Jerry Garcia, [employer] ESTIMATED BLOOD LOSS 5 mL. FLUIDS 750 mL crystalloid. COMPLICATIONS None. DRAINS None. SPECIMEN Gallbladder to pathology. PROCEDURE IN DETAIL The patient was taken to the operating room and placed on the operating table in the supine position. After an adequate level of general endotracheal anesthesia was achieved, the abdomen was prepped and draped in the usual fashion. Time-out was taken confirming the correct patient site and procedure to be performed. The skin and subcutaneous tissue was infiltrated with local anesthetic and an incision made in the umbilicus and carried through the fascia sharply. The peritoneal cavity was entered uneventfully. A 12-mm balloon trocar was inserted and the balloon inflated. The abdomen was insufflated. The patient was placed in reverse Trendelenburg position. Three 5-mm trocars were then placed with the first in the upper midline and second and third in the right subcostal region. All entered the abdominal cavity under direct vision uneventfully. The fundus of the gallbladder was then grasped and retracted up and over the dome of liver. The cystic duct-infundibular junction and cystic artery were both circumferentially dissected. The cystic artery was doubly clipped proximally, singly clipped on the gallbladder side and divided. As there did not appear to be any stones in the cystic duct, this was easily dissected free with the common duct easily seen. The cystic duct was doubly clipped distally, singly clipped on the gallbladder side and divided as well. The gallbladder was then dissected off of the liver bed with electrodissection. The gallbladder was placed into an EndoCatch device and removed via the umbilical port while observing via the upper 5-mm midline trocar. The specimen was passed off the table. The upper abdomen was revisualized via the umbilical port once again and the liver bed, cystic artery stump and cystic duct stump were all seen to be clean and dry. A small amount of irrigation was aspirated and insufflation then discontinued. The upper abdominal trocars were removed under direct vision. No bleeding was noted from the trocar sites. The laparoscope and umbilical port were then removed. The fascia was closed in the umbilicus with 0 Vicryl suture in an interrupted and [id number] fashion. The remaining local anesthetic was injected into each of the trocar sites. The skin was closed at each of the trocar sites with 4-0 Vicryl in an interrupted buried fashion. All trocar sites were dressed with Steri-Strips. The patient was extubated and taken back to the recovery room in stable condition. She tolerated the procedure well. MD VICKY Diego/SSB /11:21 AM /11:36 AM
== END | disposition home or self-care (01) ==
LOC: ESDC 08:43
PROVIDERS: ATTEND Surgery Trauma Surgery
DX: K80.20 Calculus of gallbladder without cholecystitis without obstruction (principal)
CPT/HCPCS: 00790; 47562; 88304; J0131; J1885; J2250; J2405; J3010; J3370; J7050; J7120